=== PATIENT | male | born 1955 | race African-American/Black ===

== ENCOUNTER 2016-03-17 08:54 | Emergency (ER) | payer OTHER ==
[~2016-03-17] VITALS: Ht 180.3 cm; Wt 153.5 kg
[~2016-03-17 08:54] MED LIST: BUPR1TAB29 PO; CALC1TAB87 PO; CYCL1TAB29 PO; DULO1CAP3 PO; GLIP10TA6 PO; HYDR-3583 PO; LAMO200T PO; LOSA100T PO; METF1000 PO; NOVO7030P2 SQ
[2016-03-17 08:57] VITALS: BP 143/71; PULSE 99; RESP 24; TEMP 97.8; O2SAT 96
[2016-03-17] MEDS ORDERED: SODIUM CHLOR 0.9% 1000 ML INJ 1,000 ML IV SCH (11:55)
[2016-03-17 12:00] LABS: AUTOMATED NEUTROPHIL # 3.3 TH/MM3 (1.8-7.7); BASOPHIL % 0.3 % (0.0-2.0); EOSINOPHIL # 0.4 TH/MM3 (0-0.4); EOSINOPHIL % 5.7 % (0.0-4.0); HEMATOCRIT 39.5 % (39.0-51.0); LYMPH % 38.4 % (9.0-44.0); LYMPHOCYTE # 2.7 TH/MM3 (1.0-4.8); MEAN CELL VOLUME 73.3 FL (80.0-100.0); MEAN CORPUSCULAR HEMOGLOBIN 23.5 PG (27.0-34.0); MONO % 8.9 % (0.0-8.0); NEUT % 46.7 % (16.0-70.0); PLATELET COUNT 276 TH/MM3 (150-450); RED BLOOD COUNT 5.39 MIL/MM3 (4.50-5.90); RED CELL DISTRIBUTION WIDTH 15.2 % (11.6-17.2)
[2016-03-17 12:08] LABS: HEMO FLAGS AUTO DIFF
--- NOTE | 2016-03-17 12:13 | PD ---
HPI Chief Complaint: General Weakness Time Seen by Provider: 12:08 Travel History International Travel<30 days: No Contact w/Intl Traveler<30days: No Traveled to known affect area: No History of Present Illness HPI 60-year-old male that presents to the ED for evaluation of shortness of breath with exertion as well as cough and chest pain. Per patient she's had this since this Monday. Per patient he does have some chronic shortness of breath secondary to asthma and exertion secondary to his obesity and sleep apnea but per patient since Monday is been increasingly worsening causing him a lot of discomfort especially when he stands up or walks. Per patient he always uses a cane. Patient also has a history of diabetes, hypertension. States that the shortness of breath gets worse when he lies down as well. He also tells me that he feels like he is dehydrated secondary to having chronic diarrhea. Patient takes OTC meds with minimal relief of the diarrhea. He has allergies to lisinopril and morphine. He takes insulin for his diabetes. [facility] and his doctor sent him here because of the symptoms that he was describing. Per patient the chest pain gets worse at night and appears to be more positional. Mainly on the left side. 4 out of 10. Achy and pressure-like. Does not radiate anywhere else. Denies any recent travel. Cough is productive but minimal per patient. He does had some runny nose and congestion. Patient also complains of some right upper quadrant pain. PFSH Past Medical History Arthritis: Yes Asthma: Yes Anxiety: Yes Depression: Yes High Cholesterol: Yes Diabetes: Yes Diminished Hearing: No GERD: Yes Headaches: Yes Hypertension: Yes Psychiatric: Yes (PTSD) Pneumonia: Yes Sleep Apnea: Yes (CPAP) Past Surgical History Other Surgery: Yes (BACK SURGERY 1996) Social History Alcohol Use: No Tobacco Use: No Substance Use: No Allergies-Medications (Allergen,Severity, Reaction): Coded Allergies: Lisinopril (Verified Allergy, Severe, 03/17/16) ALLERGY Morphine (Verified Adverse Reaction, Severe, 03/17/16) DIARRHEA Reported Meds & Prescriptions Reported Meds & Active Scripts Active Reported Metformin (Metformin HCl) 1,000 Mg Tab 1,000 Mg PO BIDPC With meals Losartan (Losartan Potassium) 100 Mg Tab 100 Mg PO DAILY Lamotrigine 200 Mg Tab 200 Mg PO BID Novolin 70-30 Inj (Insulin Human Isoph/Insulin Regular) 1,000 Unit/10 Ml Vial 1 Units SQ Hydrocodone-Acetaminophen 10-325 mg Tab 1 Tab PO Q4H PRN Glipizide 10 Mg Tab 10 Mg PO BIDAC Take 30 minutes before a meal Duloxetine DR (Duloxetine HCl) 60 Mg Capdr 60 Mg PO DAILY Flexeril (Cyclobenzaprine HCl) 10 Mg Tab 10 Mg PO TID Calcium 600 with Vitamin D (Calcium Carbonate-Cholecalciferol) 600-400 mg-Unit Tab 1 Tab PO DAILY Bupropion HCl ER 12 HR (Bupropion HCl) 150 Mg Tab 150 Mg PO Q12HR Review of Systems Except as stated in HPI: all other systems reviewed are Neg Physical Exam Narrative GENERAL: SKIN: Warm and dry. HEAD: Atraumatic. Normocephalic. EYES: Pupils equal and round 4 mm reactive to light and accommodation. No scleral icterus. No injection or drainage. ENT: No nasal bleeding or discharge. Mucous membranes pink and moist. Tongue is midline. No uvula deviation. NECK: Trachea midline. No JVD. CARDIOVASCULAR: Regular rate and rhythm. No murmurs, S3, S4. RESPIRATORY: No accessory muscle use. Clear to auscultation. Breath sounds equal bilaterally. GASTROINTESTINAL: Abdomen soft, non-tender, nondistended. Hepatic and splenic margins not palpable. MUSCULOSKELETAL: Extremities without clubbing, cyanosis, or edema. No obvious deformities. patient has full range of motion of the upper and lower extremities bilaterally. 2+ pulses bilaterally. NEUROLOGICAL: Awake and alert. No obvious cranial nerve deficits. Motor grossly within normal limits. Five out of 5 muscle strength in the arms and legs. Normal speech. PSYCHIATRIC: Appropriate mood and affect; insight and judgment normal. Data Data Last Documented VS Vital Signs Date Time Temp Pulse Resp B/P Pulse Ox O2 Delivery O2 Flow Rate FiO2 03/17/16 08:57 97.8 99 24 143/71 96 Room Air Orders Electrocardiogram (03/17/16 09:06) Complete Blood Count With Diff (03/17/16 11:31) Basic Metabolic Panel (Bmp) (03/17/16 11:31) Ckmb (Isoenzyme) Profile (03/17/16 11:31) Troponin I (03/17/16 11:31) Prothrombin Time / Inr (Pt) (03/17/16 11:55) Act Partial Throm Time (Ptt) (03/17/16 11:55) Urinalysis - C+S If Indicated (03/17/16 11:55) Thyroid Stimulating Hormone (03/17/16 11:55) Chest, Single Ap (03/17/16 11:55) Ecg Monitoring (03/17/16 11:55) Oximetry (03/17/16 11:55) Hepatic Functional Panel (03/17/16 11:55) Lipase (03/17/16 11:55) B-Type Natriuretic Peptide (03/17/16 11:55) Influenzae A/B Antigen (03/17/16 11:55) Sodium Chlor 0.9% 1000 Ml Inj (Ns 1000 M (03/17/16 11:55) CKMB (03/17/16 11:37) CKMB% (03/17/16 11:37) D-Dimer (03/17/16 13:10) Labs Laboratory Tests Test 03/17/16 03/17/16 03/17/16 11:37 12:05 13:25 White Blood Count 7.0 TH/MM3 Red Blood Count 5.39 MIL/MM3 Hemoglobin 12.6 GM/DL Hematocrit 39.5 % Mean Corpuscular Volume 73.3 FL Mean Corpuscular Hemoglobin 23.5 PG Mean Corpuscular Hemoglobin 32.0 % Concent Red Cell Distribution Width 15.2 % Platelet Count 276 TH/MM3 Mean Platelet Volume 6.7 FL Neutrophils (%) (Auto) 46.7 % Lymphocytes (%) (Auto) 38.4 % Monocytes (%) (Auto) 8.9 % Eosinophils (%) (Auto) 5.7 % Basophils (%) (Auto) 0.3 % Neutrophils # (Auto) 3.3 TH/MM3 Lymphocytes # (Auto) 2.7 TH/MM3 Monocytes # (Auto) 0.6 TH/MM3 Eosinophils # (Auto) 0.4 TH/MM3 Basophils # (Auto) 0.0 TH/MM3 CBC Comment AUTO DIFF Differential Comment AUTO DIFF CONFIRMED Platelet Estimate NORMAL Platelet Morphology Comment NORMAL Red Cell Morphology Comment NORMAL Sodium Level 136 MEQ/L Potassium Level 4.7 MEQ/L Chloride Level 100 MEQ/L Carbon Dioxide Level 28.5 MEQ/L Anion Gap 8 MEQ/L Blood Urea Nitrogen 16 MG/DL Creatinine 1.10 MG/DL Estimat Glomerular Filtration 83 ML/MIN Rate Random Glucose 116 MG/DL Calcium Level 9.4 MG/DL Total Bilirubin 0.2 MG/DL Direct Bilirubin 0.1 MG/DL Indirect Bilirubin 0.1 MG/DL Aspartate Amino Transf 32 U/L (AST/SGOT) Alanine Aminotransferase 57 U/L (ALT/SGPT) Alkaline Phosphatase 55 U/L Total Creatine Kinase 294 U/L Creatine Kinase MB 2.9 NG/ML Troponin I 0.05 NG/ML Total Protein 8.0 GM/DL Albumin 4.0 GM/DL Lipase 139 U/L Thyroid Stimulating Hormone 1.640 uIU/ML 3rd Gen Prothrombin Time 10.4 SEC Prothromb Time International 0.9 RATIO Ratio Activated Partial 27.1 SEC Thromboplast Time D-Dimer Quantitative (PE/DVT) 0.20 MG/L FEU B-Type Natriuretic Peptide LESS THAN 2 PG/ML Urine Color YELLOW Urine Turbidity CLEAR Urine pH 5.5 Urine Specific [place] 1.031 Urine Protein TRACE mg/dL Urine Glucose (UA) NEG mg/dL Urine Ketones NEG mg/dL Urine Occult Blood NEG Urine Nitrite NEG Urine Bilirubin NEG Urine Urobilinogen LESS THAN 2.0 MG/DL Urine Leukocyte Esterase NEG Urine RBC 2 /hpf Urine WBC 1 /hpf Urine Hyaline Casts 8 /lpf Urine Mucus MANY /lpf Microscopic Urinalysis Comment CULT NOT INDICATED MDM Medical Decision Making Medical Screen Exam Complete: Yes Emergency Medical Condition: Yes Medical Record Reviewed: Yes Interpretation(s) CBC & BMP Diagram 03/17/16 11:37 troponin and CKMB negative TSH WNL Last Impressions Chest X-Ray 03/17/16 1155 Signed Impressions: Service Date/Time: March 11:57 - CONCLUSION: No acute disease. Rashad Stewart MD BNP WNL PT and PTT WNL ddimmer negative LFTs and lipase negative Differential Diagnosis Chest pain versus COPD versus asthma exacerbation versus pleural effusion versus influenza versus pneumonia versus cardiac chest pain versus ACS Narrative Course 60-year-old male that presents to the ED for evaluation of shortness of breath and chest pain. Patient was properly examined and was found to have signs and symptoms consistent what appears to be likely viral illness but cannot rule out any other disease. Especially ACS because of the chest pain. I recommend labs and imaging. Patient is agreeable with this. EKG was ordered as well. Labs and imaging showed no sign of acute disease. Patient slightly tachycardic, d- dimmer ordered to rule out PE, secondary to the chest pain and SOB. Labs and imaging were essentially unremarkable. D-dimer was negative. My attending Dr. Bravo about where the patient and recommends admission to the chest pain center. Patient at this time prefers not to be admitted. Per patient he did have a stress test recently in the past 2 years and he believes that was negative. He understands that this doesn't necessarily mean that there is no heart issues. Patient still would prefer to go home and follow with his doctor. Patient will have to sign out AMA. AMA: The risks of leaving against medical advice without further evaluation treatment were discussed with the patient. These risks include cardiac dysfunction, cardiac dysrhythmia, possible heart attack, possible stroke or . The patient indicated understanding of these risks and appeared to have the capacity to make this decision. Patient was told that if anything worsens she is to come back immediately. He agrees and understands. See ED worsening symptoms. Follow with PCP. Diagnosis Primary Impression: Chest pain Qualified Code: R07.9 - Chest pain, unspecified type Patient Instructions: General Instructions Additional Instructions: Tylenol for pain and fever. Cough drops for cough as needed. Drink plenty of fluids. Follow-up with PCP. See ED for worsening symptoms. Med/Other Pt SpecificInfo: Prescription(s) given Disposition: 01 DISCHARGE HOME Condition: Stable Bubba Milian Mar 17, 2016 12:13
[2016-03-17 12:18] LABS: ANION GAP 8 MEQ/L (5-15); BICARBONATE 28.5 MEQ/L (21.0-32.0); BLOOD UREA NITROGEN 16 MG/DL (7-18); CHLORIDE 100 MEQ/L (98-107); GLOMERULAR FILTRATION RATE 83 ML/MIN (>89); POTASSIUM 4.7 MEQ/L (3.5-5.1); SODIUM (NA) 136 MEQ/L (136-145)
[2016-03-17 12:23] LABS: CREATINE KINASE 294 U/L (39-308)
[2016-03-17 12:31] LABS: APTT (PATIENT) 27.1 SEC (24.3-30.1); INTERNATIONAL NORMALIZED RATIO 0.9 RATIO; PROTHROMBIN TIME - PATIENT 10.4 SEC (9.8-11.6)
[2016-03-17 12:35] LABS: CKMB 2.9 NG/ML (0.5-3.6)
[2016-03-17 12:43] LABS: PLATELET ESTIMATE SMEAR NORMAL (NORMAL); PLATELET MORPHOLOGY NORMAL (NORMAL); SCAN/DIFF AUTO DIFF CONFIRMED
--- NOTE | 2016-03-17 12:57 | RADRPT ---
EXAM DATE/TIME: 03/17/2016 11:57 [facility] COMPARISON: CHEST SINGLE AP, April 29, 2014, 11:41. INDICATIONS : Short of breath. MEDICAL HISTORY : None. SURGICAL HISTORY : None. ENCOUNTER: Initial ACUITY: 1 month PAIN SCORE: 8/10 LOCATION: Bilateral chest FINDINGS: A single view of the chest demonstrates the lungs to be symmetrically aerated without evidence of mas s, infiltrate or effusion. The cardiomediastinal contours are unremarkable. Osseous structures are intact. CONCLUSION: No acute disease. Rashad Stewart MD on March 17, 2016 at 12:55 Board Certified Radiologist. This report was verified electronically.
[2016-03-17 13:43] LABS: INDIRECT BILIRUBIN 0.1 MG/DL (0.0-0.8); TOTAL BILIRUBIN ADULT 0.2 MG/DL (0.2-1.0)
[2016-03-17 13:48] LABS: BLOOD, URINE NEG (NEG); COMMENT (UR) CULT NOT INDICATED; CULTURE IF INDICATED CULT NOT INDICATED; GLUCOSE,URINE NEG (NEG); HYALINE CAST, URINE 8 /lpf (RARE); KETONE, URINE NEG (NEG); MUCUS URINE MANY /lpf (OCC); NITRITE,URINE NEG (NEG); PH, URINE 5.5 (5.0-8.5); URINE COLOR YELLOW (YELLW/STRAW)
[2016-03-17] MEDS ORDERED: VENTAER INH (14:36)
[2016-03-17] MEDS ORDERED: NOVO7030P2 SQ (14:36)
[2016-03-17 15:00] VITALS: BP 138/72; PULSE 82; RESP 20; O2SAT 96
--- NOTE | 2016-03-17 19:38 | EKG ---
Date Performed: 03/17/2016 Time Performed: 09:16:06 PTAGE: 60 years EKG: Sinus rhythm WITH OCCASIONAL SUPRAVENTRICULAR PREMATURE COMPLEXES Compared to prior tracing no significant change BORDERLINE ECG PREVIOUS TRACING : 02/01/2016 09.37 DOCTOR: James Webber Interpretating Date/Time 03/17/2016 19:36:22
== END 2016-03-17 15:26 | disposition home or self-care (01) ==
LOC: NEPE 08:54
DX: R07.9 Chest pain, unspecified (principal); I47.1 Supraventricular tachycardia; R06.02 Shortness of breath; E11.9 Type 2 diabetes mellitus without complications; I10 Essential (primary) hypertension; E78.00 Pure hypercholesterolemia, unspecified
CPT/HCPCS: 71010; 80048; 80076; 81001; 82550; 82552; 83690; 83880; 84443; 84484; 85025; 85379; 85610; 85730; 87804; 93005; 96360; 99285; J7030

== ENCOUNTER 2016-03-18 05:47 | Observation (INO) | payer OTHER ==
[~2016-03-18] VITALS: Ht 180.3 cm; Wt 140.0 kg
[~2016-03-18 05:47] MED LIST changes: +VENTAER INH
[2016-03-18 05:52] VITALS: BP 159/82; PULSE 91; RESP 18; TEMP 98.1; O2SAT 99
[2016-03-18 06:10] VITALS: BP 139/101; PULSE 93; RESP 22; O2SAT 95
[2016-03-18] MEDS ORDERED: SODIUM CHLORIDE 0.9% FLUSH 5 ML FLUSH IVF PRN (06:15)
[2016-03-18] MEDS ORDERED: ASPIRIN 81 MG CHEW TAB PO ONE (06:15)
--- NOTE | 2016-03-18 06:48 | PD ---
HPI Chief Complaint: Chest Pain Time Seen by Provider: 06:04 Travel History International Travel<30 days: No Contact w/Intl Traveler<30days: No Traveled to known affect area: No History of Present Illness HPI Patient is a 60-year-old male with history of diabetes who comes in complaining of chest pain. He was here yesterday for the same thing and advised to stay for admission, however he signed out AMA. He says he is sleeping tonight when the pain came back on and went through to his back. He says the pain was worse today, so he came back in. He says he feels short of breath on exertion, but he thinks this is due to his asthma. He denies nausea or vomiting. He denies coughing or fevers. PFSH Past Medical History Arthritis: Yes Asthma: Yes Anxiety: Yes Depression: Yes High Cholesterol: Yes Diabetes: Yes Patient Takes Glucophage: Yes (metformin 03/17/16) Diminished Hearing: No GERD: Yes Headaches: Yes Hypertension: Yes Psychiatric: Yes (PTSD) Pneumonia: Yes Sleep Apnea: Yes (DOES NOT USE CPAP) Influenza Vaccination: No Past Surgical History Other Surgery: Yes (BACK SURGERY 1996) Social History Alcohol Use: No Tobacco Use: No Substance Use: No Allergies-Medications (Allergen,Severity, Reaction): Coded Allergies: Lisinopril (Verified Allergy, Severe, 03/18/16) ALLERGY Morphine (Verified Adverse Reaction, Severe, 03/18/16) DIARRHEA Reported Meds & Prescriptions Reported Meds & Active Scripts Active Reported Novolin 70-30 Inj (Insulin Human Isoph/Insulin Regular) 1,000 Unit/10 Ml Vial 20 Units SQ DAILY IN THE PM Ventolin Hfa 18 GM Inh (Albuterol Sulfate) 90 Mcg/Act Aer 2 Puff INH QID PRN Metformin (Metformin HCl) 1,000 Mg Tab 1,000 Mg PO BIDPC With meals Losartan (Losartan Potassium) 100 Mg Tab 50 Mg PO DAILY Lamotrigine 200 Mg Tab 100 Mg PO DAILY Novolin 70-30 Inj (Insulin Human Isoph/Insulin Regular) 1,000 Unit/10 Ml Vial 15 Units SQ DAILY IN THE AM Hydrocodone-Acetaminophen 10-325 mg Tab 1 Tab PO TID PRN Glipizide 10 Mg Tab 20 Mg PO BIDAC Take 30 minutes before a meal Duloxetine DR (Duloxetine HCl) 60 Mg Capdr 60 Mg PO BID Flexeril (Cyclobenzaprine HCl) 10 Mg Tab 10 Mg PO Q8HR PRN Calcium 600 with Vitamin D (Calcium Carbonate-Cholecalciferol) 600-400 mg-Unit Tab 1 Tab PO BID Bupropion HCl ER 12 HR (Bupropion HCl) 150 Mg Tab 150 Mg PO DAILY Review of Systems Except as stated in HPI: all other systems reviewed are Neg General / Constitutional: No: Fever, Chills HENT: No: Headaches, Lightheadedness Cardiovascular: Positive: Chest Pain or Discomfort Respiratory: Positive: Shortness of Breath, No: Cough Gastrointestinal: No: Nausea, Vomiting, Abdominal Pain Musculoskeletal: No: Myalgias, Edema Skin: No Rash, No Change in Pigmentation Neurologic: No: Weakness, Dizziness Physical Exam Narrative GENERAL: Awake and alert, obese. SKIN: Warm and dry. HEAD: Atraumatic. Normocephalic. EYES: Pupils equal and round. No scleral icterus. ENT: Mucous membranes pink and moist. NECK: Trachea midline. No JVD. CARDIOVASCULAR: Regular rate and rhythm. No murmur appreciated. RESPIRATORY: No accessory muscle use. Clear to auscultation. Breath sounds equal bilaterally. GASTROINTESTINAL: Abdomen soft, non-tender, nondistended. Hepatic and splenic margins not palpable. MUSCULOSKELETAL: No obvious deformities. No clubbing. No cyanosis. No edema. NEUROLOGICAL: Awake and alert. No obvious cranial nerve deficits. Motor grossly within normal limits. Normal speech. PSYCHIATRIC: Appropriate mood and affect; insight and judgment normal. Data Data Last Documented VS Vital Signs Date Time Temp Pulse Resp B/P Pulse Ox O2 Delivery O2 Flow Rate FiO2 03/18/16 06:10 93 22 139/101 95 Room Air 03/18/16 05:52 98.1 Orders Electrocardiogram (03/18/16 06:14) Complete Blood Count With Diff (03/18/16 06:14) Comprehensive Metabolic Panel (03/18/16 06:14) Magnesium (Mg) (03/18/16 06:14) Prothrombin Time / Inr (Pt) (03/18/16 06:14) Act Partial Throm Time (Ptt) (03/18/16 06:14) Troponin I (03/18/16 06:14) Lipase (03/18/16 06:14) Chest, Single Ap (03/18/16 06:14) Ecg Monitoring (03/18/16 06:14) Bilateral Bp Monitoring (03/18/16 06:14) Iv Access Insert/Monitor (03/18/16 06:14) Oximetry (03/18/16 06:14) Oxygen Administration (03/18/16 06:14) Aspirin Chew (Aspirin Chew) (03/18/16 06:15) Sodium Chloride 0.9% Flush (Ns Flush) (03/18/16 06:15) Admit Order (Ed Use Only) (03/18/16 ) Labs Laboratory Tests Test 03/18/16 06:19 White Blood Count 6.6 TH/MM3 Red Blood Count 5.25 MIL/MM3 Hemoglobin 12.0 GM/DL Hematocrit 38.5 % Mean Corpuscular Volume 73.3 FL Mean Corpuscular Hemoglobin 22.8 PG Mean Corpuscular Hemoglobin 31.1 % Concent Red Cell Distribution Width 15.3 % Platelet Count 272 TH/MM3 Mean Platelet Volume 7.0 FL Neutrophils (%) (Auto) 45.1 % Lymphocytes (%) (Auto) 39.9 % Monocytes (%) (Auto) 8.0 % Eosinophils (%) (Auto) 6.6 % Basophils (%) (Auto) 0.4 % Neutrophils # (Auto) 3.0 TH/MM3 Lymphocytes # (Auto) 2.6 TH/MM3 Monocytes # (Auto) 0.5 TH/MM3 Eosinophils # (Auto) 0.4 TH/MM3 Basophils # (Auto) 0.0 TH/MM3 CBC Comment AUTO DIFF Prothrombin Time 10.5 SEC Prothromb Time International 1.0 RATIO Ratio Activated Partial 27.2 SEC Thromboplast Time Sodium Level 139 MEQ/L Potassium Level 4.7 MEQ/L Chloride Level 103 MEQ/L Carbon Dioxide Level 27.8 MEQ/L Anion Gap 8 MEQ/L Blood Urea Nitrogen 15 MG/DL Creatinine 1.04 MG/DL Estimat Glomerular Filtration 89 ML/MIN Rate Random Glucose 123 MG/DL Calcium Level 9.2 MG/DL Magnesium Level 1.9 MG/DL Total Bilirubin 0.2 MG/DL Aspartate Amino Transf 28 U/L (AST/SGOT) Alanine Aminotransferase 53 U/L (ALT/SGPT) Alkaline Phosphatase 52 U/L Troponin I 0.05 NG/ML Total Protein 7.6 GM/DL Albumin 3.7 GM/DL Lipase 141 U/L MDM Medical Decision Making Medical Screen Exam Complete: Yes Emergency Medical Condition: Yes Medical Record Reviewed: Yes Interpretation(s) ECG shows a regular rhythm no clear P waves seen. This is changed from his ECG that was done yesterday that showed normal sinus rhythm. Differential Diagnosis ACS versus NSTEMI versus STEMI Narrative Course Patient is a 60-year-old male comes in complaining of chest pain. Exam shows no acute abnormalities. IV established, labs sent. Patient given aspirin. Labs show troponin 0.05. Which is the same as it was yesterday. Patient placed in chest pain center for further management. Diagnosis Primary Impression: Chest pain Qualified Code: R07.9 - Chest pain, unspecified type Admitting Information Admitting Physician Requests: January Yates MD Mar 18, 2016 06:47
--- NOTE | 2016-03-18 06:53 | RADRPT ---
EXAM DATE/TIME: 03/18/2016 06:44 [facility] COMPARISON: CHEST SINGLE AP, March 17, 2016, 11:57. INDICATIONS : Patient complains of chest pain that sometimes radiates to upper back. MEDICAL HISTORY : Asthma. SURGICAL HISTORY : None. ENCOUNTER: Initial ACUITY: 1 month PAIN SCORE: 9/10 LOCATION: chest FINDINGS: A single view of the chest demonstrates the lungs to be symmetrically aerated without evidence of mas s, infiltrate or effusion. The cardiomediastinal contours are unremarkable. Osseous structures are intact. CONCLUSION: 1. No acute cardiopulmonary disease. Valentino Luque MD on March 18, 2016 at 6:51 Board Certified Radiologist. This report was verified electronically.
[2016-03-18 06:59] LABS: APTT (PATIENT) 27.2 SEC (24.3-30.1); PROTHROMBIN TIME - PATIENT 10.5 SEC (9.8-11.6)
[2016-03-18 07:00] LABS: BASOPHIL % 0.4 % (0.0-2.0); EOSINOPHIL # 0.4 TH/MM3 (0-0.4); EOSINOPHIL % 6.6 % (0.0-4.0); HEMATOCRIT 38.5 % (39.0-51.0); LYMPH % 39.9 % (9.0-44.0); LYMPHOCYTE # 2.6 TH/MM3 (1.0-4.8); MEAN CELL VOLUME 73.3 FL (80.0-100.0); MEAN CORPUSCULAR HEMOGLOBIN 22.8 PG (27.0-34.0); MEAN CORPUSCULAR HGB CONC 31.1 % (32.0-36.0); NEUT % 45.1 % (16.0-70.0); PLATELET COUNT 272 TH/MM3 (150-450); RED BLOOD COUNT 5.25 MIL/MM3 (4.50-5.90); RED CELL DISTRIBUTION WIDTH 15.3 % (11.6-17.2); WHITE BLOOD COUNT 6.6 TH/MM3 (4.0-11.0)
[2016-03-18 07:02] LABS: HEMO FLAGS AUTO DIFF
[2016-03-18 07:08] LABS: ANION GAP 8 MEQ/L (5-15); AST (GOT) 28 U/L (15-37); BICARBONATE 27.8 MEQ/L (21.0-32.0); BLOOD UREA NITROGEN 15 MG/DL (7-18); CHLORIDE 103 MEQ/L (98-107); GLOMERULAR FILTRATION RATE 89 ML/MIN (>89); MAGNESIUM 1.9 MG/DL (1.5-2.5); POTASSIUM 4.7 MEQ/L (3.5-5.1); SODIUM (NA) 139 MEQ/L (136-145)
[2016-03-18 07:12] LABS: ALKALINE PHOSPHATASE 52 U/L (45-117); ALT (GPT) 53 U/L (12-78); TOTAL BILIRUBIN ADULT 0.2 MG/DL (0.2-1.0)
[2016-03-18 07:50] LABS: PLATELET ESTIMATE SMEAR NORMAL (NORMAL); PLATELET MORPHOLOGY NORMAL (NORMAL); SCAN/DIFF AUTO DIFF CONFIRMED; TEARDROP RBCS 1+ (NORMAL)
[2016-03-18 09:30] VITALS: BP 146/67; PULSE 83; RESP 18; O2SAT 100
[2016-03-18 10:59] VITALS: BP 149/71; PULSE 86; RESP 18; TEMP 98.2; O2SAT 100
[2016-03-18] MEDS ORDERED: NITROGLYCERIN 0.4 MG SL 25 TABS/BTL SL PRN (11:00)
[2016-03-18] MEDS ORDERED: ONDANSETRON HCL 4 MG/2 ML VIAL IV PRN (11:00)
[2016-03-18] MEDS ORDERED: ACETAMINOPHEN 500 MG CPLT PO PRN (11:00)
[2016-03-18 11:43] VITALS: PULSE 82
--- NOTE | 2016-03-18 15:16 | HHI.DCPOC ---
Discharge Care Plan Diagnosis: (1) Musculoskeletal chest pain Goals to Promote Your Health * To prevent worsening of your condition and complications * To maintain your health at the optimal level Directions to Meet Your Goals Take your medications as prescribed Follow your dietary instruction Follow activity as directed Keep your appointments as scheduled Take your immunizations and boosters as scheduled If your symptoms worsen call your PCP, if no PCP go to Urgent Care Center or Emergency Room Smoking is Dangerous to Your Health. Avoid second hand smoke Call the 24-hour hour crisis hotline for domestic abuse at Naomi Ramos Mar 18, 2016 15:16
--- NOTE | 2016-03-18 20:12 | MH ---
cc: RODRI LING MD DATE OF ADMISSION 03/18/2016 1956 CHIEF COMPLAINT Chest pain HISTORY OF PRESENT ILLNESS This is a 60-year-old patient who presents to the emergency room for further evaluation of a week long chest discomfort. Onset is each evening. Location is in his substernal area described as a sharp stabbing pain that radiates to his back. This pain usually lasts until he falls back asleep, approximately 15-20 minutes, with no associated symptoms. Precipitating factors is movement or lack thereof. Relieving factors - States it gradually improves as he starts to move position or get ready throughout the day. He also has a complaint of fatigue over the past week and his chronic right hip and back pain also seems to be worse. PAST MEDICAL HISTORY 1. Diabetes, 2. Depression 3. PTSD, 4. Chronic hip and back pain, 5. Hypertension, 6. Asthma. PAST SURGICAL HISTORY Back surgery. SOCIAL HISTORY He is disabled. His primary care provider is Dr. Rosalio Allen at the [facility]. He quit smoking December of 2003. Prior to that, he smoked one-pack of cigarettes in 3 days. He denies any alcohol or illegal drug use. Does have known hypertension, diabetes. No known hyperlipidemia. He states he is pretty sedentary. PAST CARDIAC HISTORY Had a chemical stress test here at [place] 04/30/2014 which was negative for any ischemia. 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 MEDICATIONS Current include 1. Hydrocortone 1 tablet t.i.d. p.r.n. for pain 2. Losartan 50 mg daily. 3. Cymbalta 60 mg b.i.d. 4. Ventolin p.r.n. 5. Metformin 1000 mg t.i.d. 6. Flexeril 10 mg q.h.s. 7. Novolin 70/30/20 units q.p.m. 8. Calcium/vitamin D tablet twice a day 9. Glipizide 20 mg b.i.d. 10. Lamotrigine 100 mg daily. REVIEW OF SYSTEMS Reports week long of fatigue. No recent illness, fevers, chills, change in appetite. HEENT: No headache or vision changes, dysphagia. CARDIOVASCULAR: As stated above. No chest pain throughout the day or on exertion. States chest discomfort happens once he has falling asleep and then he has to move his position for the chest discomfort to be relieved. There is no intermittent leg pain or dizziness. RESPIRATORY: Has had some shortness of breath, although he relates this to his obesity and it is unchanged. No cough, wheeze, hemoptysis. He uses his albuterol inhaler infrequently. ABDOMEN: Chronic diarrhea, no pain, distension, blood in stool or dark stool. Reports a good appetite. No increase or decrease of weight unintentionally. : No dysuria. EXTREMITIES: No lower leg edema or pain. MUSCULOSKELETAL: No change in range of motion. Reports chronic back and hip pain. In fact, his right hip pain he states seems to be getting worse although his Hydrocodone and Flexeril do help with this discomfort although it never goes completely away. NEUROLOGIC: No difficulty balance, motor or sensory deficits, loss of consciousness, vertigo, change in memory. PSYCHIATRIC: No anxiety. States his he is working with his psychiatrist to decrease some of his medications including his Wellbutrin. He quit taking his Wellbutrin with the assistance of a psychiatrist with his last dose yesterday and he feels this could have be contributing to his fatigue. PHYSICAL EXAMINATION VITAL SIGNS: Temperature 98.2, pulse 86, respiratory 18, blood pressure 149/71. he is 100% on room air. GENERAL: He is alert, morbidly obese. No acute distress pleasant -[place]oven[place] male HEAD: Normocephalic, atraumatic. EYES: Sclerae clear. Conjunctivae without injection. Pupils are equal and round. NECK: Supple. Trachea is midline. CARDIOVASCULAR: He has a regular rate and rhythm without murmur, rub or gallop. No JVD. S1-S2. No S3. No S4. No carotid bruits. RESPIRATORY: Clear lungs throughout bilateral with no crackles, wheeze or rhonchi. He has diminish ____ in his bilateral bases. Nonlabored symmetrical chest rise. ABDOMEN: Soft, obese, nontender, nondistended. No masses. Positive bowel tones. EXTREMITIES: Pulses +1 x4. He does have a +1 dependent edema. MUSCULOSKELETAL: Normal tone x4. Nontender. No obvious deformities. NEUROLOGIC: Cranial nerves II-XII grossly intact. Motor strength 5/5 PSYCHIATRIC: Alert and oriented x3 with a pleasant affect appropriate to mood, insight and judgment. SKIN: Normal turgor, normal texture. Skin is warm and dry. LABORATORY CBC has a hemoglobin of 12 and a hematocrit of 38.5, MCV of 73.3, MCH of 22.8 otherwise unremarkable. Chemistry is unremarkable. Three troponins - first troponin is a 0.05, second is 0.05 and third is 0.03. He actually was seen in the emergency room 03/17. At that time, it was recommended for him to follow up at the chest pain center. He did not do that at that time, however, his troponin at that time was also 0.05. Coagulation is unremarkable. IMAGING STUDIES Chest x-ray read by the radiologist as impression of no acute cardiopulmonary disease. CARDIOLOGY STUDIES Three EKGs show normal sinus rhythm with no ST or T segment changes. ASSESSMENT/PLAN 1. Chest pain. The patient was admitted to the chest pain center. He underwent three sets of EKGs and cardiac enzymes and was monitored throughout the evening. He was seen and evaluated by Dr. Rodri Ling. His chest pain is very atypical as he happens each evening and improves with repositioning. This has been discussed with the patient and he could be discharged this afternoon and he is agreeable to this plan of care and will follow up with his primary care provider. 2. PTSD. Have encouraged him to continue to work with his psychiatrist regarding changes in his medications and his fatigue. Could most likely be related to the changes of his medications and to discuss this with his psychiatrist. All his other medications have been reordered while appropriate in the chest pain center and he has been encouraged to follow back to the emergency room as needed for any further chest discomfort. The patient is agreeable to this plan of care and verbalizes understanding. Dictated by RAPHAEL Martins MD YOUNG Gaytan/ /6:28 PM /8:48 AM
[2016-03-18] MEDS ORDERED: SODIUM CHLORIDE 0.9% FLUSH 5 ML FLUSH IVF SCH (21:00)
[2016-03-19] MEDS ORDERED: ASPIRIN 325 MG TAB PO SCH (09:00)
--- NOTE | 2016-03-19 21:42 | EKG ---
Date Performed: 03/18/2016 Time Performed: 06:35:15 PTAGE: 60 years EKG: Sinus rhythm WITH FREQUENT PACs ABNORMAL RHYTHM ECG PREVIOUS TRACING : 03/17/2016 09.16 DOCTOR: Alvin Haskins Interpretating Date/Time 03/19/2016 21:41:41
--- NOTE | 2016-03-19 22:36 | EKG ---
Date Performed: 03/18/2016 Time Performed: 09:05:05 PTAGE: 60 years EKG: Sinus rhythm WITH OCCASIONAL SUPRAVENTRICULAR PREMATURE COMPLEXES BORDERLINE ECG PREVIOUS TRACING : 03/18/2016 06.35 DOCTOR: Alvin Haskins Interpretating Date/Time 03/19/2016 22:35:08
--- NOTE | 2016-03-19 23:03 | EKG ---
Date Performed: 03/18/2016 Time Performed: 12:37:00 PTAGE: 60 years EKG: Sinus rhythm WITH OCCASIONAL SUPRAVENTRICULAR PREMATURE COMPLEXES BORDERLINE ECG PREVIOUS TRACING : 03/18/2016 09.05 DOCTOR: Alvin Haskins Interpretating Date/Time 03/19/2016 23:01:48
== END 2016-03-18 16:16 | disposition home or self-care (01) ==
LOC: NEPC 05:47 → NEDA 07:19 → NEPFCDU 10:56
PROVIDERS: ADMIT Internal Medicine Cardiovascular Disease; ATTEND Internal Medicine Cardiovascular Disease
DX: R07.9 Chest pain, unspecified (principal); I10 Essential (primary) hypertension; R94.31 Abnormal electrocardiogram [ECG] [EKG]; E11.9 Type 2 diabetes mellitus without complications; F43.10 Post-traumatic stress disorder, unspecified; E78.00 Pure hypercholesterolemia, unspecified; G47.30 Sleep apnea, unspecified; J45.909 Unspecified asthma, uncomplicated; K21.9 Gastro-esophageal reflux disease without esophagitis; M19.90 Unspecified osteoarthritis, unspecified site; Z87.891 Personal history of nicotine dependence
CPT/HCPCS: 71010; 80053; 82948; 83690; 83735; 84484; 85025; 85610; 85730; 93005; 99285; G0378

== ENCOUNTER 2016-03-31 15:44 | Emergency (ER) | payer OTHER ==
[~2016-03-31] VITALS: Ht 180.3 cm; Wt 140.0 kg
[~2016-03-31 15:44] MED LIST changes: -BUPR1TAB29 PO
[2016-03-31 15:46] VITALS: BP 139/67; PULSE 105; RESP 14; TEMP 98.1; O2SAT 98
--- NOTE | 2016-03-31 18:24 | PD ---
HPI . Cough Chief Complaint: Respiratory Symptoms Time Seen by Provider: 18:00 Travel History International Travel<30 days: No Contact w/Intl Traveler<30days: No Traveled to known affect area: No History of Present Illness HPI Patient presents with a chronic cough. This been going on for at least a month. Symptoms are exacerbated isolated down. He is also complaining with fatigue, headache, shortness of breath and chest pain. Patient reports that his chest pain is exacerbated by movement and by coughing. Patient reports that he was seen here twice for same go and that no etiology for his symptoms was found. He reports that he had a negative stress test. Patient further reports that there is a lot of mold in his apartment. He reports a history of asthma and uses Inderal as needed. He states that the albuterol helps his breathing but does not help his chest pain. He states that he is not on any other medications for his asthma such as inhaled or oral steroids. PFSH Past Medical History Arthritis: Yes Asthma: Yes Anxiety: Yes Depression: Yes Cardiovascular Problems: No High Cholesterol: Yes Diabetes: Yes Patient Takes Glucophage: Yes Diminished Hearing: No GERD: Yes Headaches: Yes Hypertension: Yes Psychiatric: Yes (PTSD) Pneumonia: Yes Sleep Apnea: Yes (DOES NOT USE CPAP) Past Surgical History Other Surgery: Yes (BACK SURGERY 1996) Social History Alcohol Use: Yes (rare) Tobacco Use: No Substance Use: No Allergies-Medications (Allergen,Severity, Reaction): Coded Allergies: Lisinopril (Verified Allergy, Severe, 03/31/16) ALLERGY Morphine (Verified Adverse Reaction, Severe, 03/31/16) DIARRHEA Reported Meds & Prescriptions Reported Meds & Active Scripts Active Reported Novolin 70-30 Inj (Insulin Human Isoph/Insulin Regular) 1,000 Unit/10 Ml Vial 20 Units SQ DAILY IN THE PM Ventolin Hfa 18 GM Inh (Albuterol Sulfate) 90 Mcg/Act Aer 2 Puff INH QID PRN Metformin (Metformin HCl) 1,000 Mg Tab 1,000 Mg PO BIDPC With meals Losartan (Losartan Potassium) 100 Mg Tab 50 Mg PO DAILY Lamotrigine 200 Mg Tab 100 Mg PO DAILY Novolin 70-30 Inj (Insulin Human Isoph/Insulin Regular) 1,000 Unit/10 Ml Vial 15 Units SQ DAILY IN THE AM Hydrocodone-Acetaminophen 10-325 mg Tab 1 Tab PO TID PRN Glipizide 10 Mg Tab 20 Mg PO BIDAC Take 30 minutes before a meal Duloxetine DR (Duloxetine HCl) 60 Mg Capdr 60 Mg PO BID Flexeril (Cyclobenzaprine HCl) 10 Mg Tab 10 Mg PO Q8HR PRN Calcium 600 with Vitamin D (Calcium Carbonate-Cholecalciferol) 600-400 mg-Unit Tab 1 Tab PO BID Review of Systems Except as stated in HPI: all other systems reviewed are Neg General / Constitutional: Positive: Other (fatigue), No: Fever, Chills HENT: Positive: Headaches Cardiovascular: Positive: Chest Pain or Discomfort Respiratory: Positive: Cough, Shortness of Breath Physical Exam Narrative GENERAL: Awake and alert and in no acute distress. SKIN: Warm and dry. HEAD: Atraumatic. Normocephalic. EYES: Pupils equal and round. ENT: No nasal bleeding or discharge. Mucous membranes pink and moist. NECK: Trachea midline. Neck is supple. CARDIOVASCULAR: Regular rate and rhythm. Heart sounds are normal. RESPIRATORY: No accessory muscle use. He is able to speak in complete sentences without dyspnea. He does have some expiratory wheezing which is heard with coughing. GASTROINTESTINAL: Abdomen soft, non-tender, nondistended. MUSCULOSKELETAL: No obvious deformities. No edema. NEUROLOGICAL: Awake and alert. No obvious cranial nerve deficits. Motor grossly within normal limits. Normal speech. PSYCHIATRIC: Appropriate mood and affect; insight and judgment normal. Data Data Last Documented VS Vital Signs Date Time Temp Pulse Resp B/P Pulse Ox O2 Delivery O2 Flow Rate FiO2 03/31/16 19:42 99 Nasal Cannula 2 03/31/16 19:41 18 03/31/16 19:40 104 135/61 03/31/16 15:46 98.1 Orders Complete Blood Count With Diff (03/31/16 18:17) Basic Metabolic Panel (Bmp) (03/31/16 18:17) B-Type Natriuretic Peptide (03/31/16 18:17) D-Dimer (03/31/16 18:17) Ckmb (Isoenzyme) Profile (03/31/16 18:17) Troponin I (03/31/16 18:17) Iv Access Insert/Monitor (03/31/16 18:17) Electrocardiogram (03/31/16 18:17) Ecg Monitoring (03/31/16 18:17) Oximetry (03/31/16 18:17) Oxygen Administration (03/31/16 18:17) Chest, Single Ap (03/31/16 18:17) Sodium Chloride 0.9% Flush (Ns Flush) (03/31/16 18:30) Methylprednisolone So Succ Inj (Solumedr (03/31/16 18:30) Albuterol-Ipratropium Neb (Duoneb Neb) (03/31/16 18:30) CKMB (03/31/16 18:30) CKMB% (03/31/16 18:30) Albuterol-Ipratropium Neb (Duoneb Neb) (03/31/16 19:45) Labs Laboratory Tests Test 03/31/16 18:30 White Blood Count 8.2 TH/MM3 Red Blood Count 5.18 MIL/MM3 Hemoglobin 12.0 GM/DL Hematocrit 38.3 % Mean Corpuscular Volume 73.9 FL Mean Corpuscular Hemoglobin 23.1 PG Mean Corpuscular Hemoglobin 31.3 % Concent Red Cell Distribution Width 15.3 % Platelet Count 287 TH/MM3 Mean Platelet Volume 6.6 FL Neutrophils (%) (Auto) 54.1 % Lymphocytes (%) (Auto) 31.2 % Monocytes (%) (Auto) 9.7 % Eosinophils (%) (Auto) 4.6 % Basophils (%) (Auto) 0.4 % Neutrophils # (Auto) 4.4 TH/MM3 Lymphocytes # (Auto) 2.6 TH/MM3 Monocytes # (Auto) 0.8 TH/MM3 Eosinophils # (Auto) 0.4 TH/MM3 Basophils # (Auto) 0.0 TH/MM3 CBC Comment AUTO DIFF Differential Comment AUTO DIFF CONFIRMED D-Dimer Quantitative (PE/DVT) 0.22 MG/L FEU Sodium Level 138 MEQ/L Potassium Level 4.8 MEQ/L Chloride Level 105 MEQ/L Carbon Dioxide Level 26.4 MEQ/L Anion Gap 7 MEQ/L Blood Urea Nitrogen 18 MG/DL Creatinine 1.18 MG/DL Estimat Glomerular Filtration 77 ML/MIN Rate Random Glucose 100 MG/DL Calcium Level 8.8 MG/DL Total Creatine Kinase 633 U/L Creatine Kinase MB 4.5 NG/ML Creatine Kinase MB % 0.7 % Troponin I 0.04 NG/ML MDM Medical Decision Making Medical Screen Exam Complete: Yes Emergency Medical Condition: Yes Medical Record Reviewed: Yes (patient was seen here a couple weeks ago and admitted to the chest pain center and he had negative cardiac enzymes, a normal BMP, normal d-dimer and a negative chest x-ray.) Interpretation(s) EKG shows a sinus rhythm with no acute ischemic changes. EKG is unchanged from previous. Differential Diagnosis Differential diagnosis of dyspnea includes but is not limited to congestive heart failure, pneumonia, wheezing, pneumothorax, pulmonary embolism Narrative Course Patient presents for evaluation and treatment of a chronic cough. Patient has artery been evaluated here for chest pain or shortness of breath twice in the past couple weeks. The etiology of his symptoms has not yet been determined. I suspect that asthma is the etiology of his symptoms. He probably has chest wall pain from coughing and is coughing because he is wheezing. Chest x-ray is negative to the radiologist's interpretation. Chest x-ray was independently viewed by me. CBC has an H&H of 12.0 38.3. White blood count is 8.2. D-dimer 0.22. Diagnosis Primary Impression: Dyspnea Qualified Code: R06.00 - Dyspnea, unspecified type Additional Impressions: Chest pain Qualified Code: R07.9 - Chest pain, unspecified type Asthma Qualified Code: J45.20 - Mild intermittent asthma without complication Chest wall pain Patient Instructions: Asthma (ED), Chest Wall Pain (ED), General Instructions Med/Other Pt SpecificInfo: Prescription(s) given Scripts Hydrocodone-Chlorpheniramine 12 HR Liq (Tussionex Pennkinetic Ext 12 HR Liq)10- 8 Mg/5 Ml Susp5 Ml PO Q12H PRN (cough) #60 ML Ref 0 Prov:Aida Acuña MD 03/31/16 Prednisone (48) 10 mg tab Dose Pack 10 Mg Dspk10 Mg PO DIRECTED #1 DSPK Ref 0 Prov:Aida Acuña MD 03/31/16 Disposition: 01 DISCHARGE HOME Condition: Stable Aida Acuña MD Mar 31, 2016 18:24
[2016-03-31] MEDS: RESP: ALBUTEROL 2.5 MG/IPRATROPIUM 0.5 MG NEB (SCH) INH ×2 (18:25→20:03)
[2016-03-31] MEDS ORDERED: SODIUM CHLORIDE 0.9% FLUSH 5 ML FLUSH IVF PRN (18:30)
[2016-03-31] MEDS ORDERED: methylPREDNISolone SOD SUCC 125 MG/2 ML VIAL IVP ONE (18:30)
[2016-03-31 18:38] LABS: AUTOMATED NEUTROPHIL # 4.4 TH/MM3 (1.8-7.7); BASOPHIL % 0.4 % (0.0-2.0); EOSINOPHIL # 0.4 TH/MM3 (0-0.4); EOSINOPHIL % 4.6 % (0.0-4.0); HEMATOCRIT 38.3 % (39.0-51.0); LYMPH % 31.2 % (9.0-44.0); LYMPHOCYTE # 2.6 TH/MM3 (1.0-4.8); MEAN CELL VOLUME 73.9 FL (80.0-100.0); MEAN CORPUSCULAR HEMOGLOBIN 23.1 PG (27.0-34.0); MEAN CORPUSCULAR HGB CONC 31.3 % (32.0-36.0); MONO % 9.7 % (0.0-8.0); NEUT % 54.1 % (16.0-70.0); PLATELET COUNT 287 TH/MM3 (150-450); RED BLOOD COUNT 5.18 MIL/MM3 (4.50-5.90); RED CELL DISTRIBUTION WIDTH 15.3 % (11.6-17.2); WHITE BLOOD COUNT 8.2 TH/MM3 (4.0-11.0)
[2016-03-31 18:54] LABS: HEMO FLAGS AUTO DIFF
--- NOTE | 2016-03-31 18:56 | RADRPT ---
EXAM DATE/TIME: 03/31/2016 18:35 [facility] COMPARISON: CHEST SINGLE AP, March 18, 2016, 6:44. INDICATIONS : Short of breath. MEDICAL HISTORY : Ex smoker. SURGICAL HISTORY : None. ENCOUNTER: Initial ACUITY: >1 year PAIN SCORE: 0/10 LOCATION: Bilateral chest FINDINGS: A single view of the chest demonstrates the lungs to be symmetrically aerated without evidence of mas s, infiltrate or effusion. The cardiomediastinal contours are unremarkable. Osseous structures are intact. CONCLUSION: No acute disease. Antony Arnold MD on March 31, 2016 at 18:55 Board Certified Radiologist. This report was verified electronically.
[2016-03-31 19:18] LABS: SCAN/DIFF AUTO DIFF CONFIRMED
[2016-03-31 19:22] LABS: BICARBONATE 26.4 MEQ/L (21.0-32.0)
[2016-03-31 19:23] LABS: POTASSIUM 4.8 MEQ/L (3.5-5.1)
[2016-03-31 19:35] LABS: CKMB 4.5 NG/ML (0.5-3.6)
[2016-03-31 19:40] VITALS: BP 135/61; PULSE 104; RESP 18; O2SAT 92
[2016-03-31 19:41] VITALS: RESP 18; O2SAT 92
[2016-03-31 19:42] VITALS: O2SAT 99
[2016-03-31] MEDS ORDERED: PRED10PA2 PO (20:03)
[2016-03-31] MEDS ORDERED: TUSSSUS2 PO (20:03)
--- NOTE | 2016-04-01 16:31 | EKG ---
Date Performed: 03/31/2016 Time Performed: 18:53:34 PTAGE: 60 years EKG: SINUS TACHYCARDIA ABNORMAL RHYTHM ECG NO PREVIOUS TRACING DOCTOR: Billy Beauchamp Interpretating Date/Time 04/01/2016 16:29:33
== END 2016-03-31 22:01 | disposition home or self-care (01) ==
LOC: NEPA 15:44
DX: R06.00 Dyspnea, unspecified (principal); R07.89 Other chest pain; J45.20 Mild intermittent asthma, uncomplicated; R51 Headache; R94.31 Abnormal electrocardiogram [ECG] [EKG]; E11.9 Type 2 diabetes mellitus without complications; I10 Essential (primary) hypertension; E78.00 Pure hypercholesterolemia, unspecified; G47.30 Sleep apnea, unspecified; Z79.84 Long term (current) use of oral hypoglycemic drugs; Z87.09 Personal history of other diseases of the respiratory system; Z87.39 Personal history of other diseases of the musculoskeletal system and connective tissue; Z87.19 Personal history of other diseases of the digestive system; Z86.59 Personal history of other mental and behavioral disorders
CPT/HCPCS: 71010; 80048; 82550; 82552; 83880; 84484; 85025; 85379; 93005; 94640; 94664; 96374; 99285; J2930

== ENCOUNTER 2016-04-12 10:03 | Observation (INO) | payer OTHER ==
[~2016-04-12] VITALS: Ht 180.3 cm; Wt 137.0 kg
[2016-04-12] VITALS (7 sets, daily range): BP systolic 138–165; BP diastolic 67–79; PULSE 82–100; RESP 16–24; TEMP 98.2–98.4; O2SAT 96–100
[~2016-04-12 10:03] MED LIST changes: +PRED10PA2 PO; +TUSSSUS2 PO
--- NOTE | 2016-04-12 11:39 | PD ---
HPI Chief Complaint: Respiratory Distress Time Seen by Provider: 11:38 Travel History International Travel<30 days: No Contact w/Intl Traveler<30days: No Traveled to known affect area: No History of Present Illness HPI 60-year-old male came to the emergency room with history of shortness of breath on exertion, chest pain, generalized weakness, cough for past month and a half. Patient says that he was started on antibiotics for pneumonia a week ago. However his symptoms have not improved. He was told by his primary care from [place] to come to the emergency room. Patient is little confused and all over the place with his history. He did admit that he has issues with his memory. His vital signs in triage showed hypertension which slowly has improved after him coming in the room. He appears to be anxious. Patient does not require oxygen at home. He was afebrile in triage. He points to his entire chest when I asked him to the location of his pain. No specific radiation of this pain. Doesn't seem like there is anything that makes the pain better or worse. Currently his pain is 5 out of 10 in its a dull ache. PFSH Past Medical History Narrative Medical List of his past medical history is reviewed from the nursing note. Arthritis: Yes Asthma: Yes Anxiety: Yes Depression: Yes Cardiovascular Problems: No High Cholesterol: Yes Diabetes: Yes Diminished Hearing: No GERD: Yes Headaches: Yes Hypertension: Yes Psychiatric: Yes (PTSD) Pneumonia: Yes Sleep Apnea: Yes (DOES NOT USE CPAP) Past Surgical History Other Surgery: Yes (BACK SURGERY 1996) Social History Alcohol Use: Yes (rare) Tobacco Use: No Substance Use: No Allergies-Medications (Allergen,Severity, Reaction): Coded Allergies: Lisinopril (Verified Allergy, Severe, 04/12/16) ALLERGY Morphine (Verified Adverse Reaction, Severe, 04/12/16) DIARRHEA Comments List of his allergies reviewed from the nursing note. Reported Meds & Prescriptions Reported Meds & Active Scripts Active Reported Glucose (Dextrose) 4 Gm Chew 16 Gm PO DIRECTED PRN If needed may repeat in 15 minutes Bupropion HCl ER 24 HR (Bupropion HCl) 150 Mg Tab 450 Mg PO DAILY Novolin 70-30 Inj (Insulin Human Isoph/Insulin Regular) 1,000 Unit/10 Ml Vial 20 Units SQ DAILY IN THE PM Ventolin Hfa 18 GM Inh (Albuterol Sulfate) 90 Mcg/Act Aer 2 Puff INH QID PRN Metformin (Metformin HCl) 1,000 Mg Tab 1,000 Mg PO BIDPC With meals Losartan (Losartan Potassium) 100 Mg Tab 50 Mg PO DAILY Lamotrigine 200 Mg Tab 200 Mg PO DAILY MEDICATION ON HOLD Novolin 70-30 Inj (Insulin Human Isoph/Insulin Regular) 1,000 Unit/10 Ml Vial 15 Units SQ DAILY IN THE AM Hydrocodone-Acetaminophen 10-325 mg Tab 1 Tab PO TID PRN Glipizide 10 Mg Tab 20 Mg PO BIDAC Take 30 minutes before a meal Duloxetine DR (Duloxetine HCl) 60 Mg Capdr 60 Mg PO BID Flexeril (Cyclobenzaprine HCl) 10 Mg Tab 10 Mg PO Q8HR PRN Narrative Medication List of his home medications were reviewed from the nurses note. Review of Systems Except as stated in HPI: all other systems reviewed are Neg Physical Exam Narrative GENERAL: Awake, alert, anxious, moderate distress, morbidly obese SKIN: Warm and dry. HEAD: Atraumatic. Normocephalic. EYES: Pupils equal and round. No scleral icterus. No injection or drainage. ENT: No nasal bleeding or discharge. Mucous membranes pink and moist. NECK: Trachea midline. No JVD. CARDIOVASCULAR: Regular rate and rhythm. No murmur appreciated. RESPIRATORY: No accessory muscle use. Clear to auscultation. Breath sounds equal bilaterally. GASTROINTESTINAL: Abdomen soft, non-tender, nondistended. Hepatic and splenic margins not palpable. MUSCULOSKELETAL: No obvious deformities. No clubbing. No cyanosis. No edema. NEUROLOGICAL: Awake and alert. No obvious cranial nerve deficits. Motor grossly within normal limits. Normal speech. PSYCHIATRIC: Appropriate mood and affect; insight and judgment normal. Data Data Last Documented VS Vital Signs Date Time Temp Pulse Resp B/P Pulse Ox O2 Delivery O2 Flow Rate FiO2 04/12/16 13:45 88 23 165/74 100 Nasal Cannula 2.0 04/12/16 10:05 98.2 Orders Electrocardiogram (04/12/16 11:51) Basic Metabolic Panel (Bmp) (04/12/16 11:51) B-Type Natriuretic Peptide (04/12/16 11:51) Ckmb (Isoenzyme) Profile (04/12/16 11:51) Complete Blood Count With Diff (04/12/16 11:51) Magnesium (Mg) (2/7/17 11:51) Prothrombin Time / Inr (Pt) (04/12/16 11:51) Act Partial Throm Time (Ptt) (04/12/16 11:51) Troponin I (04/12/16 11:51) Lipase (04/12/16 11:51) Chest, Single Ap (04/12/16 11:51) Ecg Monitoring (04/12/16 11:51) Bilateral Bp Monitoring (04/12/16 11:51) Iv Access Insert/Monitor (04/12/16 11:51) Oximetry (04/12/16 11:51) Oxygen Administration (04/12/16 11:51) Sodium Chloride 0.9% Flush (Ns Flush) (04/12/16 12:00) Aspirin Chew (Aspirin Chew) (04/12/16 12:15) CKMB (04/12/16 13:36) CKMB% (04/12/16 13:36) Dextrose 50% In Wang (Vial) Inj (D50w (Vi (04/12/16 15:15) Diet Heart Healthy (04/12/16 Dinner) Admit Order (Ed Use Only) (04/12/16 16:04) Labs Laboratory Tests Test 04/12/16 13:36 White Blood Count 11.4 TH/MM3 Red Blood Count 5.01 MIL/MM3 Hemoglobin 11.7 GM/DL Hematocrit 36.6 % Mean Corpuscular Volume 73.0 FL Mean Corpuscular Hemoglobin 23.4 PG Mean Corpuscular Hemoglobin 32.0 % Concent Red Cell Distribution Width 15.3 % Platelet Count 305 TH/MM3 Mean Platelet Volume 6.5 FL Neutrophils (%) (Auto) 51.9 % Lymphocytes (%) (Auto) 36.1 % Monocytes (%) (Auto) 8.5 % Eosinophils (%) (Auto) 3.1 % Basophils (%) (Auto) 0.4 % Neutrophils # (Auto) 5.9 TH/MM3 Lymphocytes # (Auto) 4.1 TH/MM3 Monocytes # (Auto) 1.0 TH/MM3 Eosinophils # (Auto) 0.4 TH/MM3 Basophils # (Auto) 0.0 TH/MM3 CBC Comment AUTO DIFF Differential Comment AUTO DIFF CONFIRMED Platelet Estimate NORMAL Platelet Morphology Comment NORMAL Prothrombin Time 10.6 SEC Prothromb Time International 1.0 RATIO Ratio Activated Partial 27.3 SEC Thromboplast Time Sodium Level 138 MEQ/L Potassium Level 4.3 MEQ/L Chloride Level 103 MEQ/L Carbon Dioxide Level 23.5 MEQ/L Anion Gap 12 MEQ/L Blood Urea Nitrogen 15 MG/DL Creatinine 1.08 MG/DL Estimat Glomerular Filtration 85 ML/MIN Rate Random Glucose 46 MG/DL Calcium Level 9.0 MG/DL Magnesium Level 2.1 MG/DL Total Creatine Kinase 318 U/L Creatine Kinase MB 2.5 NG/ML Creatine Kinase MB % 0.8 % Troponin I 0.02 NG/ML B-Type Natriuretic Peptide 3 PG/ML Lipase 145 U/L [facility] Medical Decision Making Medical Screen Exam Complete: Yes Emergency Medical Condition: Yes Medical Record Reviewed: Yes Interpretation(s) Twelve-lead EKG was reviewed by me. Normal sinus rhythm, normal axis, nonspecific ST-T wave changes. Heart rate of 84 bpm. Differential Diagnosis Pneumonia, CHF, ACS Narrative Course 12:11 PM awaiting for the blood test results and the x-ray to be done and resulted. Patient's complains are extensive and vague. However I am concerned about the chest pain and the shortness of breath could be related to it. Patient does have risk factors in the form of obesity, hypertension and almost being 61 years old. If the workup comes back to be negative I will admit him in chest pain center to be ruled out for ACS. I'll give him 2 baby aspirin in the meanwhile. 3:10 PM patient's blood test results finally came back. His blood sugar is 46. I've ordered 1 amp of D50. Patient will be admitted. Awaiting for the hospitalist to call back. Procedures EKG Prior to Arrival: No Diagnosis Primary Impression: Chest pain Qualified Code: R07.9 - Chest pain, unspecified type Additional Impression: Hypoglycemia Arian Irby MD Apr 12, 2016 11:39
[2016-04-12] MEDS ORDERED: ASPIRIN 81 MG CHEW TAB CHEW ONE (12:15)
[2016-04-12] MEDS ORDERED: BUPR150T3 PO (12:32)
[2016-04-12] MEDS ORDERED: GLUC4CHW PO (12:32)
--- NOTE | 2016-04-12 13:08 | RADRPT ---
EXAM DATE/TIME: 04/12/2016 12:03 [facility] COMPARISON: CHEST SINGLE AP, March 31, 2016, 18:35. INDICATIONS : Coughing, short of breath, recent pneumonia MEDICAL HISTORY : pneumonia SURGICAL HISTORY : None. ENCOUNTER: Initial ACUITY: 3 days PAIN SCORE: 0/10 LOCATION: Bilateral chest FINDINGS: A single view of the chest demonstrates the lungs to be symmetrically aerated without evidence of mas s, infiltrate or effusion. The cardiomediastinal contours are unremarkable. Osseous structures are intact. There are overlying electrocardiogram leads. CONCLUSION: No acute disease. There is no evidence of pneumonia. Miky Osorio MD on April 12, 2016 at 13:06 Board Certified Radiologist. This report was verified electronically.
[2016-04-12] MEDS: SODIUM CHLORIDE 0.9% FLUSH 5 ML FLUSH IVF PRN ×2 (13:33→15:20)
[2016-04-12 14:04] LABS: AUTOMATED NEUTROPHIL # 5.9 TH/MM3 (1.8-7.7); BASOPHIL % 0.4 % (0.0-2.0); EOSINOPHIL # 0.4 TH/MM3 (0-0.4); EOSINOPHIL % 3.1 % (0.0-4.0); HEMATOCRIT 36.6 % (39.0-51.0); LYMPH % 36.1 % (9.0-44.0); LYMPHOCYTE # 4.1 TH/MM3 (1.0-4.8); MEAN CORPUSCULAR HEMOGLOBIN 23.4 PG (27.0-34.0); MONO % 8.5 % (0.0-8.0); NEUT % 51.9 % (16.0-70.0); PLATELET COUNT 305 TH/MM3 (150-450); RED BLOOD COUNT 5.01 MIL/MM3 (4.50-5.90); RED CELL DISTRIBUTION WIDTH 15.3 % (11.6-17.2); WHITE BLOOD COUNT 11.4 TH/MM3 (4.0-11.0)
[2016-04-12 14:05] LABS: APTT (PATIENT) 27.3 SEC (24.3-30.1); PROTHROMBIN TIME - PATIENT 10.6 SEC (9.8-11.6)
[2016-04-12 14:11] LABS: HEMO FLAGS AUTO DIFF
[2016-04-12 14:19] LABS: POTASSIUM 4.3 MEQ/L (3.5-5.1)
[2016-04-12 14:56] LABS: PLATELET ESTIMATE SMEAR NORMAL (NORMAL); PLATELET MORPHOLOGY NORMAL (NORMAL); SCAN/DIFF AUTO DIFF CONFIRMED
[2016-04-12 15:00] LABS: BICARBONATE 23.5 MEQ/L (21.0-32.0); MAGNESIUM 2.1 MG/DL (1.5-2.5)
[2016-04-12] MEDS ORDERED: DEXTROSE 50% IN WATER 50 ML VIAL(D50) IV PUSH ONE (15:15)
[2016-04-12 15:29] LABS: CKMB 2.5 NG/ML (0.5-3.6)
--- NOTE | 2016-04-12 16:17 | HHI.HP ---
[facility] Service Family Medicine Primary Care Physician [facility] Admission Diagnosis chest pain, rule out ACS, hypoglycemia Diagnoses: Chief Complaint: chest pain International Travel<30 Days: No Contact w/Intl Traveler<30days: No Known Affected Area: No History of Present Illness 60 y/o -[place] male presents with chest pain. Initially developed a cough last week, was seen at the [place] last week and diagnosed with pneumonia. Completed course of antibiotics, unsure of the name. Had trouble sleeping last night, then woke up this morning. Has had some chest discomfort for a couple weeks. Denies any new onset of chest pain. Describes it as discomfort. Now, he feels he has general malaise. Has SOB on exertion. Also having lightheadedness, dizziness. Also having shoulder/neck aches. Feels tired and not his normal self. No history of heart disease. Thinks his mother had some heart disease. Has history of asthma and as albuterol. Has history of diabetes, been on insulin for several years, denies any hypoglycemia spells. Has history of GERD. (Luis Eduardo Max MD R1) Review of Systems Constitutional: DENIES: Fever, Chills, Night Sweats Eyes: DENIES: Blurred vision, Vision loss Ears, nose, mouth, throat: DENIES: Hearing loss, Oral lesions, Throat pain, Ear Pain Respiratory: COMPLAINS OF: Cough, Sputum production, Shortness of breath Cardiovascular: COMPLAINS OF: Chest pain, DENIES: Palpitations, Syncope, Lower Extremity Edema Gastrointestinal: COMPLAINS OF: Diarrhea, DENIES: Abdominal pain, Black stools , Bloody stools, Constipation, Nausea, Vomiting Genitourinary: DENIES: Urinary frequency, Dysuria Musculoskeletal: COMPLAINS OF: Muscle aches, DENIES: Joint pain, Back pain Integumentary: DENIES: Rash Hematologic/lymphatic: DENIES: Bruising, Lymphadenopathy Neurologic: DENIES: Headache, Paresthesias Psychiatric: COMPLAINS OF: Anxiety, Confusion (Luis Eduardo Max MD R1) Past Family Social History Past Medical History Asthma DM-been on insulin for 2 years HTN Depression/anxiety Chronic back pain Past Surgical History Back surgery '98 Reported Medications Reported Meds & Active Scripts Active Reported Glucose (Dextrose) 4 Gm Chew 16 Gm PO DIRECTED PRN If needed may repeat in 15 minutes Bupropion HCl ER 24 HR (Bupropion HCl) 150 Mg Tab 450 Mg PO DAILY Novolin 70-30 Inj (Insulin Human Isoph/Insulin Regular) 1,000 Unit/10 Ml Vial 20 Units SQ DAILY IN THE PM Ventolin Hfa 18 GM Inh (Albuterol Sulfate) 90 Mcg/Act Aer 2 Puff INH QID PRN Metformin (Metformin HCl) 1,000 Mg Tab 1,000 Mg PO BIDPC With meals Losartan (Losartan Potassium) 100 Mg Tab 50 Mg PO DAILY Lamotrigine 200 Mg Tab 200 Mg PO DAILY MEDICATION ON HOLD Novolin 70-30 Inj (Insulin Human Isoph/Insulin Regular) 1,000 Unit/10 Ml Vial 15 Units SQ DAILY IN THE AM Hydrocodone-Acetaminophen 10-325 mg Tab 1 Tab PO TID PRN Glipizide 10 Mg Tab 20 Mg PO BIDAC Take 30 minutes before a meal Duloxetine DR (Duloxetine HCl) 60 Mg Capdr 60 Mg PO BID Flexeril (Cyclobenzaprine HCl) 10 Mg Tab 10 Mg PO Q8HR PRN (Luis Eduardo Max MD R1) Allergies: Coded Allergies: Lisinopril (Verified Allergy, Severe, 04/12/16) ALLERGY Morphine (Verified Adverse Reaction, Severe, 04/12/16) DIARRHEA Active Ordered Medications Active Medications Aspirin (Aspirin Chew) 162 mg ONCE ONCE CHEW Last administered on 04/12/16 13: 33; Admin Dose 162 MG; Start 04/12/16 at 12:15; Stop 04/12/16 at 12:21; Status DC Dextrose (D50w (Vial) Inj) 50 ml ONCE ONCE IV PUSH Last administered on 15:20; Admin Dose 50 ML; Start 04/12/16 at 15:15; Stop 04/12/16 at 15:16; Status DC IV Flush (NS Flush) 2 ml UNSCH PRN IVF Last administered on 04/12/16 15:20; Admin Dose 2 ML; Start 04/12/16 at 12:00 Family History Mother-breast cancer Father-alcoholic Social History Used to smoke, 1/2 PPD for 30 years Used to drink alcohol heavily, quit last couple years Marijuana use in the past (Luis Eduardo Max MD R1) Physical Exam Vital Signs Vital Signs Date Time Temp Pulse Resp B/P Pulse Ox O2 Delivery O2 Flow Rate FiO2 04/12/16 13:45 88 23 165/74 100 Nasal Cannula 2.0 04/12/16 12:05 86 24 141/67 98 Room Air 138/74 04/12/16 12:04 97 Room Air 04/12/16 12:04 90 24 141/67 98 Room Air 04/12/16 12:04 Nasal Cannula 2.0 04/12/16 10:05 98.2 100 16 144/79 98 Room Air Physical Exam GENERAL: Not diaphoretic. Negative Lavines sign. No acute distress. EYES: PERRLA- pupils are slightly constricted. EOMI. Lids and conjunctivae reveal no gross abnormality. No scleral icterus. ENT: Hearing adequate. Head NCAT. MMM. OP/OC clear. No cervical or supraclavicular LAD. NECK: No JVD. No carotid bruits. Neck supple, no masses. Trachea midline. No thyromegaly. RESPIRATORY: No evidence of pulmonary edema. Distant lung sounds. Lungs essentially CTAB, no wheezing, crackles, or increased WOB. CARDIOVASCULAR: Regular rate and rhythm, no murmurs or rubs. Radial and DP pulses 2+ and symmetric bilaterally. Brisk capillary refill. ABDOMEN: S/ NT/ND. Bowel sounds x 4. No masses or pulsations present. No hepatosplenomegaly. EXTREMITIES: No remarkable dependent edema or varicosities. No clubbing, cyanosis, or erythema. MUSCULOSKELETAL: MAEW without significant joint pain or deformity. Strength 5/5 in upper and lower extremities. No calf tenderness. Negative Yann's sign SKIN: Essentially clear with no significant rash or lesions. Adequate skin turgor. NEUROLOGICAL: NFND. Cranial nerves 2-12 grossly intact. Reflexes +2, symmetric bilaterally in upper and lower extremities. PSYCHIATRIC: Mental status normal for age. Laboratory Laboratory Tests Test 04/12/16 13:36 White Blood Count 11.4 Red Blood Count 5.01 Hemoglobin 11.7 Hematocrit 36.6 Mean Corpuscular Volume 73.0 Mean Corpuscular Hemoglobin 23.4 Mean Corpuscular Hemoglobin 32.0 Concent Red Cell Distribution Width 15.3 Platelet Count 305 Mean Platelet Volume 6.5 Neutrophils (%) (Auto) 51.9 Lymphocytes (%) (Auto) 36.1 Monocytes (%) (Auto) 8.5 Eosinophils (%) (Auto) 3.1 Basophils (%) (Auto) 0.4 Neutrophils # (Auto) 5.9 Lymphocytes # (Auto) 4.1 Monocytes # (Auto) 1.0 Eosinophils # (Auto) 0.4 Basophils # (Auto) 0.0 CBC Comment AUTO DIFF Differential Comment AUTO DIFF CONFIRMED Platelet Estimate NORMAL Platelet Morphology Comment NORMAL Prothrombin Time 10.6 Prothromb Time International 1.0 Ratio Activated Partial 27.3 Thromboplast Time Sodium Level 138 Potassium Level 4.3 Chloride Level 103 Carbon Dioxide Level 23.5 Anion Gap 12 Blood Urea Nitrogen 15 Creatinine 1.08 Estimat Glomerular Filtration 85 Rate Random Glucose 46 Calcium Level 9.0 Magnesium Level 2.1 Total Creatine Kinase 318 Creatine Kinase MB 2.5 Creatine Kinase MB % 0.8 Troponin I 0.02 B-Type Natriuretic Peptide 3 Lipase 145 (Luis Eduardo Max MD R1) Result Diagram: 04/12/16 1336 04/12/16 1336 Imaging Last Impressions Chest X-Ray 04/12/16 1151 Signed Impressions: Service Date/Time: Tuesday, April 12, 2016 12:03 - CONCLUSION: No acute disease. There is no evidence of pneumonia. Miky Osorio MD (Luis Eduardo Max MD R1) Assessment and Plan Assessment and Plan 60-year-old male with history of asthma, diabetes, HTN presents with chest pain and shortness of breath. Will admit for ACS rule out. Code Status Full Discussed Condition With Dr. Silva (Luis Eduardo Max MD R1) Attending Attestation THIS CASE WAS DISCUSSED WITH THE RESIDENT PHYSICIAN. I HAVE REVIEWED THE RECORD AND AGREE WITH THE ABOVE NOTE AND PLAN OF CARE WAS DISCUSSED. I HAVE AUTHORIZED THE ORDER FOR PLACEMENT IN OUT-PATIENT OBSERVATION STATUS. (Luiz Israel MD) Problem List: (1) Chest pain Status: Acute Plan: -DDx includes ACS, GERD, PE, pneumonia, panic attack, myocarditis, costochondritis. -CAD risk factors include obesity, smoking hx, FH of [place], HTN, HLD, DM. -EKG showed normal sinus rhythm -CXR showed no acute disease -Initial Trop 0.02. Trend Savi and EKGs x 2. If 2nd trop. is sig. increased, notify cardiology -Supplemental O2. Daily aspirin. Protonix. -Morphine 2mg Q2 hrs PRN chest pain only. -Tele. -AM BMP + Mg to detect/correct electrolyte abnormalities that could lower arrythmia threshold. (2) Hypoglycemia Status: Acute Plan: Glucose 46 on admission. Asymptomatic. Hasn't eaten in 6 hours. Is on home metformin 1000 twice a day, glipizide 20 mg twice a day Novolin 15 units in the a.m., 20 units in the p.m. -Continue to monitor glucose -Low-dose sliding scale (3) DM (diabetes mellitus) Status: Acute Plan: On chronic insulin use See plan above Monitor blood sugar (4) Hypertension Status: Acute Plan: Blood pressure 144/79 on admission. Continue home meds: Losartan 50 mg daily Clonidine 0.1mg PRN elevated BP (5) Anxiety Status: Acute Plan: Continue home meds: Wellbutrin, Cymbalta (6) Chronic back pain Status: Acute Plan: Continue home Flexeril, hydrocodone/acetaminophen 10/325 one tab by mouth 3 times a day when necessary (7) FEN Status: Acute Plan: Fluids: none, tolerating PO Electrolytes: wnl, continue to monitor Nutrition: heart healthy diet DVT ppx: lovenox 40mg SQ daily (Luis Eduardo Max MD R1) Problem Qualifiers (1) Chest pain: Qualified Code: R07.9 - Chest pain, unspecified type (2) DM (diabetes mellitus): Qualified Code: E11.9 - Type 2 diabetes mellitus without complication, with long-term current use of insulin (3) Hypertension: Qualified Code: I10 - Essential hypertension (4) Chronic back pain: Qualified Code: M54.5 - Chronic bilateral low back pain without sciatica Luis Eduardo Max MD R1 Apr 12, 2016 16:17 Luiz Israel MD Apr 14, 2016 08:13
[2016-04-12] MEDS ORDERED: CYCLOBENZAPRINE HCL 10 MG TAB PO PRN (17:00)
[2016-04-12] MEDS ORDERED: ONDANSETRON HCL 4 MG/2 ML VIAL IVP PRN (17:00)
[2016-04-12] MEDS ORDERED: ALBUTEROL SULFATE 90 MCG/ACT HFA 8 GM INHALER INH PRN (17:00)
[2016-04-12] MEDS ORDERED: ACETAMINOPHEN 325 MG TAB PO PRN (17:00)
[2016-04-12] MEDS ORDERED: ACETAMINOPHEN/HYDROcodone 325 MG/10 MG TAB PO PRN (17:00)
[2016-04-12] MEDS ORDERED: NALOXONE HCL 0.4 MG/ML AMP IV PRN (17:00)
[2016-04-12] MEDS ORDERED: SODIUM CHLORIDE 0.9% FLUSH 5 ML FLUSH FLUSH PRN (17:00)
[2016-04-12] MEDS ORDERED: cloNIDine HCL 0.1 MG TAB PO PRN (17:15)
[2016-04-12] MEDS ORDERED: DEXTROSE 50% IN WATER 50 ML VIAL(D50) IV PUSH PRN (17:45)
[2016-04-12] MEDS ORDERED: GLUCAGON 1 MG/ML VIAL OTHER PRN (17:45)
[2016-04-12] MEDS ORDERED: ENOXAPARIN SODIUM 40 MG/0.4 ML SYRINGE SQ SCH (18:00)
[2016-04-12] MEDS: MORPHINE SULFATE 4 MG/ML INJ IV PRN ×2 (19:10→22:33)
[2016-04-12] MEDS: INSULIN ASPART SUPPLEMENTAL SCALE SQ SCH (20:06)
[2016-04-12] MEDS: DULoxetine HCl DR 60 MG CAP PO SCH (20:07)
[2016-04-12] MEDS: SODIUM CHLORIDE 0.9% FLUSH 5 ML FLUSH FLUSH SCH (20:07)
[2016-04-13 01:58] VITALS: BP 128/58; PULSE 85; RESP 18; TEMP 98.6; O2SAT 94
[2016-04-13] MEDS: INSULIN ASPART SUPPLEMENTAL SCALE SQ SCH ×2 (06:01→11:00)
[2016-04-13] MEDS: MORPHINE SULFATE 4 MG/ML INJ IV PRN (06:03)
[2016-04-13 06:07] VITALS: BP 146/85; PULSE 81; RESP 18; TEMP 98.8; O2SAT 94
[2016-04-13 06:27] LABS: BASOPHIL % 0.5 % (0.0-2.0); EOSINOPHIL # 0.4 TH/MM3 (0-0.4); EOSINOPHIL % 4.1 % (0.0-4.0); HEMATOCRIT 34.8 % (39.0-51.0); LYMPH % 33.5 % (9.0-44.0); LYMPHOCYTE # 3.2 TH/MM3 (1.0-4.8); MEAN CELL VOLUME 73.6 FL (80.0-100.0); MEAN CORPUSCULAR HEMOGLOBIN 23.5 PG (27.0-34.0); MEAN CORPUSCULAR HGB CONC 31.9 % (32.0-36.0); MONO % 8.7 % (0.0-8.0); NEUT % 53.2 % (16.0-70.0); PLATELET COUNT 276 TH/MM3 (150-450); RED BLOOD COUNT 4.73 MIL/MM3 (4.50-5.90); RED CELL DISTRIBUTION WIDTH 15.3 % (11.6-17.2); WHITE BLOOD COUNT 9.4 TH/MM3 (4.0-11.0)
[2016-04-13 06:32] LABS: HEMO FLAGS AUTO DIFF
[2016-04-13 06:44] LABS: ANION GAP 8 MEQ/L (5-15); BICARBONATE 25.3 MEQ/L (21.0-32.0); BLOOD UREA NITROGEN 14 MG/DL (7-18); CHLORIDE 102 MEQ/L (98-107); GLOMERULAR FILTRATION RATE 82 ML/MIN (>89); POTASSIUM 4.8 MEQ/L (3.5-5.1); SODIUM (NA) 135 MEQ/L (136-145)
[2016-04-13 06:47] LABS: HDL CHOLESTEROL 37.4 MG/DL (40.0-60.0); LDL CHOLESTEROL 121 MG/DL (0-99)
[2016-04-13 07:49] VITALS: BP 132/75; PULSE 87; RESP 16; TEMP 98.1; O2SAT 96
[2016-04-13 07:53] VITALS: O2SAT 97
[2016-04-13 08:02] LABS: PLATELET ESTIMATE SMEAR NORMAL (NORMAL); PLATELET MORPHOLOGY NORMAL (NORMAL); SCAN/DIFF AUTO DIFF CONFIRMED
[2016-04-13] MEDS: DULoxetine HCl DR 60 MG CAP PO SCH (08:33)
[2016-04-13] MEDS: SODIUM CHLORIDE 0.9% FLUSH 5 ML FLUSH FLUSH SCH (08:33)
[2016-04-13] MEDS ORDERED: PANTOPRAZOLE SOD 40 MG DELAYED RELEASE TAB PO SCH (09:00)
[2016-04-13] MEDS ORDERED: buPROPion HCL 100 MG SUSTAINED RELEASE TAB PO SCH (09:00)
[2016-04-13] MEDS ORDERED: LOSARTAN 50 MG TAB PO SCH (09:00)
[2016-04-13] MEDS ORDERED: ASPIRIN EC 325 MG TABEC PO SCH (09:00)
--- NOTE | 2016-04-13 10:10 | HHI.FPPN ---
Subjective Remarks FM Attending Note: Patient seen and examined. S: Chart and all resident physician notes reviewed. In summary this is a 60 year old male who was admitted with an admission diagnosis of Chest Pain, R/O Acs, Hypoglycemia. This patient was recently treated for a URI/pneumonia with antibiotics at the [facility]. Following treatment has noted malaise and some chest pain. Pain mostly with movement and cough; transient lasting only a few seconds. No diaphoresis or radiation of pain. Deconditioned with some SOB noted with exertion. He is diabetic. Recalls being on a "statin" at one time for cholesterol. Objective Vitals Vital Signs Date Time Temp Pulse Resp B/P Pulse Ox O2 Delivery O2 Flow Rate FiO2 04/13/16 07:53 97 21 04/13/16 07:49 98.1 87 16 132/75 96 04/13/16 06:07 98.8 81 18 146/85 94 04/13/16 01:58 98.6 85 18 128/58 94 04/12/16 23:11 96 Nasal Cannula 2.00 04/12/16 20:34 98.4 82 18 138/75 96 04/12/16 18:08 89 24 151/78 99 Nasal Cannula 2.0 04/12/16 13:45 88 23 165/74 100 Nasal Cannula 2.0 04/12/16 12:05 86 24 141/67 98 Room Air 138/74 04/12/16 12:04 97 Room Air 04/12/16 12:04 90 24 141/67 98 Room Air 04/12/16 12:04 Nasal Cannula 2.0 I/O 04/12/16 04/12/16 04/12/16 04/13/16 04/13/16 04/13/16 07:00 15:00 23:00 07:00 15:00 23:00 Output Total 300 ml Balance -300 ml Output Urine Total 300 ml # Voids 1 1 Result Diagram: 04/13/16 0550 04/13/16 0550 Other Results Item Value Date Time Random Glucose 46 MG/DL *L 04/12/16 1336 Random Glucose 120 MG/DL H 04/13/16 0550 Magnesium Level 2.1 MG/DL 04/12/16 1336 Total Creatine Kinase 318 U/L H 04/12/16 1336 Creatine Kinase MB 2.5 NG/ML 04/12/16 1336 Creatine Kinase MB % 0.8 % 04/12/16 1336 Troponin I 0.02 NG/ML 04/12/16 1336 Troponin I LESS THAN 0.02 NG/ML L 04/13/16 0003 Troponin I LESS THAN 0.02 NG/ML L 04/13/16 0550 B-Type Natriuretic Peptide 3 PG/ML 04/12/16 1336 Triglycerides Level 191 MG/DL H 04/13/16 0550 Cholesterol Level 197 MG/DL 04/13/16 0550 LDL Cholesterol 121 MG/DL H 04/13/16 0550 HDL Cholesterol 37.4 MG/DL L 04/13/16 0550 Cholesterol/HDL Ratio 5.26 RATIO 04/13/16 0550 Lipase 145 U/L 04/12/16 1336 Serial EKG's show not acute changes. Imaging Last 48 hours Impressions Chest X-Ray 04/12/16 1151 Signed Impressions: Service Date/Time: Tuesday, April 12, 2016 12:03 - CONCLUSION: No acute disease. There is no evidence of pneumonia. Miky Osorio MD Objective Remarks O. CONSTITUTIONAL/GEN: normally nourished with elevated BMI, in NAD. EYES: conjunctiva normal, PERRLA, EOMI. NECK: thyroid midline, carotids symmetrical. LUNGS: clear A-P, respiratory effort is normal. CARDIOVASCULAR: RR without murmur or gallop. No significant edema. GI/ABD: soft without masses, without organomegaly. NEURO: No focal deficits. MUSC: back is normal in appearance. Extremities are normal in appearance. PSYCH/MENTAL STATUS: Alert and oriented x 3. A/P Assessment and Plan 60-year-old male with history of asthma, diabetes, HTN presents with chest pain and shortness of breath. Will admit for ACS rule out. Problem List: (1) Chest pain Status: Acute Plan: -DDx includes ACS, GERD, PE, pneumonia, panic attack, myocarditis, costochondritis. -CAD risk factors include obesity, smoking hx, FH of [place], HTN, HLD, DM. -EKG showed normal sinus rhythm -CXR showed no acute disease -Initial Trop 0.02. Trend Savi and EKGs x 2. If 2nd trop. is sig. increased, notify cardiology -Supplemental O2. Daily aspirin. Protonix. -Morphine 2mg Q2 hrs PRN chest pain only. -Tele. -AM BMP + Mg to detect/correct electrolyte abnormalities that could lower arrythmia threshold. 04/13/16 Enzymes and EKG's show no changes suggestive of an acute cardiac condition. Chest pain described is atypical; seems to be related to chest wall pain form recent pneumonia/cough. DM and mild hyperlipidemia are risk factors for cardiac disease and he will f/u for ongoing care at the [facility] for chronic management. (2) Hypoglycemia Status: Acute Plan: Glucose 46 on admission. Asymptomatic. Hasn't eaten in 6 hours. Is on home metformin 1000 twice a day, glipizide 20 mg twice a day Novolin 15 units in the a.m., 20 units in the p.m. -Continue to monitor glucose -Low-dose sliding scale (3) DM (diabetes mellitus) Status: Acute Plan: On chronic insulin use See plan above Monitor blood sugar (4) Hypertension Status: Acute Plan: Blood pressure 144/79 on admission. Continue home meds: Losartan 50 mg daily Clonidine 0.1mg PRN elevated BP (5) Anxiety Status: Acute Plan: Continue home meds: Wellbutrin, Cymbalta (6) Chronic back pain Status: Acute Plan: Continue home Flexeril, hydrocodone/acetaminophen 10/325 one tab by mouth 3 times a day when necessary (7) FEN Status: Acute Plan: Fluids: none, tolerating PO Electrolytes: wnl, continue to monitor Nutrition: heart healthy diet DVT ppx: lovenox 40mg SQ daily Problem Qualifiers (1) Chest pain: Qualified Code: R07.9 - Chest pain, unspecified type (2) DM (diabetes mellitus): Qualified Code: E11.9 - Type 2 diabetes mellitus without complication, with long-term current use of insulin (3) Hypertension: Qualified Code: I10 - Essential hypertension (4) Chronic back pain: Qualified Code: M54.5 - Chronic bilateral low back pain without sciatica Luiz Israel MD Apr 13, 2016 10:10
--- NOTE | 2016-04-13 10:56 | HHI.DCPOC ---
Discharge Care Plan Diagnosis: (1) Chest wall pain (2) Hypoglycemia (3) DM (diabetes mellitus) (4) Chest pain Goals to Promote Your Health * To prevent worsening of your condition and complications * To maintain your health at the optimal level Directions to Meet Your Goals Take your medications as prescribed Follow your dietary instruction Follow activity as directed Keep your appointments as scheduled Take your immunizations and boosters as scheduled If your symptoms worsen call your PCP, if no PCP go to Urgent Care Center or Emergency Room Smoking is Dangerous to Your Health. Avoid second hand smoke Call the 24-hour hour crisis hotline for domestic abuse at Fausto Silva MD R2 Apr 13, 2016 10:56
--- NOTE | 2016-04-13 18:59 | EKG ---
Date Performed: 04/13/2016 Time Performed: 01:58:24 PTAGE: 60 years EKG: Sinus rhythm POSSIBLE INFERIOR MYOCARDIAL INFARCTION BORDERLINE ECG PREVIOUS TRACING : 04/12/2016 20.40 Compared to prior tracing no significant change DOCTOR: Roel Cabrera Interpretating Date/Time 04/13/2016 18:58:31
--- NOTE | 2016-04-13 22:16 | EKG ---
Date Performed: 04/12/2016 Time Performed: 20:40:50 PTAGE: 60 years EKG: Sinus rhythm NORMAL ECG PREVIOUS TRACING : 04/12/2016 13.10 Compared to prior tracing no significant change DOCTOR: Reol Cabrera Interpretating Date/Time 04/13/2016 22:16:40
--- NOTE | 2016-04-13 22:55 | EKG ---
Date Performed: 04/12/2016 Time Performed: 13:10:27 PTAGE: 60 years EKG: Sinus rhythm NORMAL ECG PREVIOUS TRACING : 03/31/2016 18.53 Compared to prior tracing no significant change DOCTOR: Roel Cabrera Interpretating Date/Time 04/13/2016 22:53:32
== END 2016-04-13 12:05 | disposition home or self-care (01) ==
LOC: NEPB 10:03 → NEDA 16:06 → NEPGCP 19:33
PROVIDERS: ADMIT Family Medicine; ATTEND Family Medicine
DX: R07.89 Other chest pain (principal); I10 Essential (primary) hypertension; E11.649 Type 2 diabetes mellitus with hypoglycemia without coma; M54.5 Low back pain; G89.29 Other chronic pain; E78.5 Hyperlipidemia, unspecified; F43.10 Post-traumatic stress disorder, unspecified; E78.00 Pure hypercholesterolemia, unspecified; E66.9 Obesity, unspecified; G47.30 Sleep apnea, unspecified; J45.909 Unspecified asthma, uncomplicated; K21.9 Gastro-esophageal reflux disease without esophagitis; Z87.01 Personal history of pneumonia (recurrent); Z79.4 Long term (current) use of insulin; Z87.891 Personal history of nicotine dependence; R94.31 Abnormal electrocardiogram [ECG] [EKG]; Z68.41 Body mass index [BMI] 40.0-44.9, adult
CPT/HCPCS: 71010; 80048; 80061; 82550; 82552; 82948; 83690; 83735; 83880; 84484; 85025; 85610; 85730; 93005; 96374; 99285; G0378; J1650; J2270; J2405

== ENCOUNTER 2016-04-19 11:12 | Emergency (ER) | payer OTHER ==
[~2016-04-19] VITALS: Ht 180.3 cm; Wt 133.0 kg
[~2016-04-19 11:12] MED LIST changes: +BUPR150T3 PO; -CALC1TAB87 PO; +GLUC4CHW PO; -PRED10PA2 PO; -TUSSSUS2 PO
[2016-04-19 11:13] VITALS: BP 150/70; PULSE 92; RESP 12; TEMP 98.4; O2SAT 96
--- NOTE | 2016-04-19 12:37 | PD ---
HPI Chief Complaint: Cardiac Complaint Time Seen by Provider: 12:37 Travel History International Travel<30 days: No Contact w/Intl Traveler<30days: No Traveled to known affect area: No History of Present Illness HPI 60-year-old male with PMH of DM, chronic back pain, recent pneumonia diagnosis presents to the ED for evaluation of dyspnea on exertion, rib pain with deep breathing. He states that he feels as if he is having difficulties moving air. He states that he was diagnosed with musculoskeletal chest pain in the past and that this pain is exactly the same. He denies fevers, cough, chills, chest pain, palpitations, diaphoresis, nausea, vomiting, abdominal pain, dysuria, back pain. He states that during the course of his pneumonia treatment he was sedentary. Denies leg pain. He repeatedly states "It's not my heart." PFSH Past Medical History Arthritis: Yes Asthma: Yes Anxiety: Yes Depression: Yes Cardiovascular Problems: Yes High Cholesterol: Yes Diabetes: Yes Patient Takes Glucophage: No Diminished Hearing: No Gastrointestinal Disorders: Yes GERD: Yes Headaches: Yes Hypertension: Yes Psychiatric: Yes (PTSD) Respiratory: Yes (ASTHMA ) Pneumonia: Yes Sleep Apnea: Yes (DOES NOT USE CPAP) Past Surgical History Other Surgery: Yes (BACK SURGERY 1996) Social History Alcohol Use: No Tobacco Use: No Substance Use: No Allergies-Medications (Allergen,Severity, Reaction): Coded Allergies: Lisinopril (Verified Allergy, Severe, 04/19/16) ALLERGY Morphine (Verified Adverse Reaction, Severe, 04/19/16) DIARRHEA Reported Meds & Prescriptions Reported Meds & Active Scripts Active Reported Glucose (Dextrose) 4 Gm Chew 16 Gm PO DIRECTED PRN If needed may repeat in 15 minutes Bupropion HCl ER 24 HR (Bupropion HCl) 150 Mg Tab 450 Mg PO DAILY Novolin 70-30 Inj (Insulin Human Isoph/Insulin Regular) 1,000 Unit/10 Ml Vial 20 Units SQ DAILY IN THE PM Ventolin Hfa 18 GM Inh (Albuterol Sulfate) 90 Mcg/Act Aer 2 Puff INH QID PRN Metformin (Metformin HCl) 1,000 Mg Tab 1,000 Mg PO BIDPC With meals Losartan (Losartan Potassium) 100 Mg Tab 50 Mg PO DAILY Novolin 70-30 Inj (Insulin Human Isoph/Insulin Regular) 1,000 Unit/10 Ml Vial 15 Units SQ DAILY IN THE AM Hydrocodone-Acetaminophen 10-325 mg Tab 1 Tab PO TID PRN Glipizide 10 Mg Tab 20 Mg PO BIDAC Take 30 minutes before a meal Duloxetine DR (Duloxetine HCl) 60 Mg Capdr 60 Mg PO BID Flexeril (Cyclobenzaprine HCl) 10 Mg Tab 10 Mg PO Q8HR PRN Review of Systems Except as stated in HPI: all other systems reviewed are Neg Physical Exam Narrative GENERAL: Well-nourished, well-developed pleasant black male in no acute distress. SKIN: Warm and dry. HEAD: Normocephalic. EYES: No scleral icterus. No injection or drainage. NECK: Supple, trachea midline. No JVD or lymphadenopathy. CARDIOVASCULAR: Regular rate and rhythm without murmurs, gallops, or rubs. 2+ DP and radial pulses bilaterally. RESPIRATORY: Breath sounds clear and equal bilaterally. No accessory muscle use. GASTROINTESTINAL: Abdomen soft, non-tender, nondistended. Active bowel sounds. MUSCULOSKELETAL: No cyanosis, or edema. Homans sign negative bilaterally. BACK: Nontender without obvious deformity. No CVA tenderness. Data Data Last Documented VS Vital Signs Date Time Temp Pulse Resp B/P Pulse Ox O2 Delivery O2 Flow Rate FiO2 04/19/16 13:03 98 04/19/16 13:03 Room Air 04/19/16 11:13 98.4 92 12 150/70 Orders Electrocardiogram (04/19/16 ) Complete Blood Count With Diff (04/19/16 12:46) Comprehensive Metabolic Panel (04/19/16 12:46) B-Type Natriuretic Peptide (04/19/16 12:46) Act Partial Throm Time (Ptt) (04/19/16 12:46) Prothrombin Time / Inr (Pt) (04/19/16 12:46) Ckmb (Isoenzyme) Profile (04/19/16 12:46) Troponin I (04/19/16 12:46) Urinalysis - C+S If Indicated (04/19/16 12:46) Iv Access Insert/Monitor (04/19/16 12:46) Ecg Monitoring (04/19/16 12:46) Oximetry (04/19/16 12:46) Oxygen Administration (04/19/16 12:46) Chest, Single Ap (04/19/16 12:46) Sodium Chloride 0.9% Flush (Ns Flush) (04/19/16 13:00) D-Dimer (04/19/16 12:51) CKMB (04/19/16 12:54) CKMB% (04/19/16 12:54) Labs Laboratory Tests Test 04/19/16 04/19/16 12:45 12:54 Urine Color YELLOW Urine Turbidity CLEAR Urine pH 8.0 Urine Specific Ayer 1.022 Urine Protein NEG mg/dL Urine Glucose (UA) NEG mg/dL Urine Ketones NEG mg/dL Urine Occult Blood NEG Urine Nitrite NEG Urine Bilirubin NEG Urine Urobilinogen LESS THAN 2.0 MG/DL Urine Leukocyte Esterase NEG Urine RBC 1 /hpf Urine WBC 1 /hpf Urine Mucus FEW /lpf Microscopic Urinalysis Comment CULT NOT INDICATED White Blood Count 9.2 TH/MM3 Red Blood Count 4.91 MIL/MM3 Hemoglobin 11.5 GM/DL Hematocrit 36.0 % Mean Corpuscular Volume 73.4 FL Mean Corpuscular Hemoglobin 23.4 PG Mean Corpuscular Hemoglobin 31.9 % Concent Red Cell Distribution Width 14.9 % Platelet Count 323 TH/MM3 Mean Platelet Volume 7.0 FL Neutrophils (%) (Auto) 47.0 % Lymphocytes (%) (Auto) 36.3 % Monocytes (%) (Auto) 9.6 % Eosinophils (%) (Auto) 6.5 % Basophils (%) (Auto) 0.6 % Neutrophils # (Auto) 4.3 TH/MM3 Lymphocytes # (Auto) 3.3 TH/MM3 Monocytes # (Auto) 0.9 TH/MM3 Eosinophils # (Auto) 0.6 TH/MM3 Basophils # (Auto) 0.1 TH/MM3 CBC Comment AUTO DIFF Differential Comment AUTO DIFF CONFIRMED Prothrombin Time 10.6 SEC Prothromb Time International 1.0 RATIO Ratio Activated Partial 27.5 SEC Thromboplast Time D-Dimer Quantitative (PE/DVT) 0.39 MG/L FEU Sodium Level 140 MEQ/L Potassium Level 4.4 MEQ/L Chloride Level 105 MEQ/L Carbon Dioxide Level 25.4 MEQ/L Anion Gap 10 MEQ/L Blood Urea Nitrogen 20 MG/DL Creatinine 1.12 MG/DL Estimat Glomerular Filtration 81 ML/MIN Rate Random Glucose 68 MG/DL Calcium Level 9.5 MG/DL Total Bilirubin 0.2 MG/DL Aspartate Amino Transf 28 U/L (AST/SGOT) Alanine Aminotransferase 47 U/L (ALT/SGPT) Alkaline Phosphatase 47 U/L Total Creatine Kinase 345 U/L Creatine Kinase MB 2.7 NG/ML Creatine Kinase MB % 0.8 % Troponin I 0.03 NG/ML B-Type Natriuretic Peptide 15 PG/ML Total Protein 7.4 GM/DL Albumin 3.7 GM/DL MDM Medical Decision Making Medical Screen Exam Complete: Yes Emergency Medical Condition: Yes Interpretation(s) EKG rate 84, sinus rhythm, occasional ABCs. [place] interval 186, QRS 82, QTc 385. Normal axis. No ischemic changes. Similar to previous tracing of 03/21/16. Reviewed by Dr. Hunter Differential Diagnosis Deconditioning versus pneumonia versus PE versus ACS versus musculoskeletal chest pain versus other Narrative Course 60-year-old male with PMH of DM, chronic back pain, recent pneumonia diagnosis presents to the ED for evaluation of dyspnea on exertion, rib pain with deep breathing. He states that he feels as if he is having difficulties moving air. States pain is exactly the same as previously diagnosed musculoskeletal chest pain. He denies fevers, chills, chest pain, palpitations, cough, diaphoresis, nausea, vomiting, abdominal pain, dysuria, back pain. He endorses a recent sedentary period while he was treating for pneumonia. Denies leg pain. He repeatedly states "It's not my heart." Vitals reviewed. Pulse 92, BP 150/70 on presentation. Physical exam reveals a nontoxic-appearing black male in no acute distress. No appreciable M/R/G. Breath sounds clear and equal bilaterally. Abdomen benign. Homans sign negative bilaterally. Equal distal pulses bilaterally. IV was established. Patient was placed on continuous monitoring. CBC: WBC 9.2. Hemoglobin 11.5. INR 1.0. CMP: BUN 20, creatinine 1.12. D-dimer 0.39. BNP 15 Cardiac enzymes negative 1: EKG: As above. CXR: No acute disease UA: No culture indicated I discussed the patient, workup and plan for discharge with who agrees. The patient was reassured when we discussed his negative workup. I suspect this dyspnea on exertion may be related to deconditioning. I encouraged him to continue with normal, gentle activities, albuterol rescue inhaler at home as needed. I recommended that he consult with his primary care provider regarding outpatient pulmonary function testing at the [facility]. The patient indicated understanding of his discharge instructions. He is amenable to the plan of care. He is stable and discharged home. Diagnosis Primary Impression: Musculoskeletal chest pain Additional Impression: Physical deconditioning Referrals: Primary Care Physician Patient Instructions: Dyspnea (ED), General Instructions Additional Instructions: Rest, hydrate. Resume normal, gentle activities as tolerated. Continue albuterol rescue inhaler as needed. Outpatient pulmonary function testing may be of benefit. Follow up with the [facility] this week. Return to the ED for any urgent or emergent medical condition. Disposition: 01 DISCHARGE HOME Condition: Stable Azalea Brown Apr 19, 2016 12:37
[2016-04-19] MEDS ORDERED: SODIUM CHLORIDE 0.9% FLUSH 5 ML FLUSH IVF PRN (13:00)
[2016-04-19 13:03] VITALS: O2SAT 98
[2016-04-19 13:13] LABS: AUTOMATED NEUTROPHIL # 4.3 TH/MM3 (1.8-7.7); BASOPHIL # 0.1 TH/MM3 (0-0.2); BASOPHIL % 0.6 % (0.0-2.0); EOSINOPHIL # 0.6 TH/MM3 (0-0.4); EOSINOPHIL % 6.5 % (0.0-4.0); LYMPH % 36.3 % (9.0-44.0); LYMPHOCYTE # 3.3 TH/MM3 (1.0-4.8); MEAN CELL VOLUME 73.4 FL (80.0-100.0); MEAN CORPUSCULAR HEMOGLOBIN 23.4 PG (27.0-34.0); MEAN CORPUSCULAR HGB CONC 31.9 % (32.0-36.0); MONO % 9.6 % (0.0-8.0); PLATELET COUNT 323 TH/MM3 (150-450); RED BLOOD COUNT 4.91 MIL/MM3 (4.50-5.90); RED CELL DISTRIBUTION WIDTH 14.9 % (11.6-17.2); WHITE BLOOD COUNT 9.2 TH/MM3 (4.0-11.0)
[2016-04-19 13:18] LABS: HEMO FLAGS AUTO DIFF
[2016-04-19 13:20] LABS: BLOOD, URINE NEG (NEG); GLUCOSE,URINE NEG (NEG); KETONE, URINE NEG (NEG); MUCUS URINE FEW /lpf (OCC); NITRITE,URINE NEG (NEG); URINE COLOR YELLOW (YELLW/STRAW)
[2016-04-19 13:23] LABS: APTT (PATIENT) 27.5 SEC (24.3-30.1); PROTHROMBIN TIME - PATIENT 10.6 SEC (9.8-11.6)
[2016-04-19 13:27] LABS: ALT (GPT) 47 U/L (12-78); ANION GAP 10 MEQ/L (5-15); AST (GOT) 28 U/L (15-37); BICARBONATE 25.4 MEQ/L (21.0-32.0); BLOOD UREA NITROGEN 20 MG/DL (7-18); CHLORIDE 105 MEQ/L (98-107); GLOMERULAR FILTRATION RATE 81 ML/MIN (>89); POTASSIUM 4.4 MEQ/L (3.5-5.1); SODIUM (NA) 140 MEQ/L (136-145)
[2016-04-19 13:30] LABS: COMMENT (UR) CULT NOT INDICATED; CULTURE IF INDICATED CULT NOT INDICATED
[2016-04-19 13:31] LABS: ALKALINE PHOSPHATASE 47 U/L (45-117); CREATINE KINASE 345 U/L (39-308); TOTAL BILIRUBIN ADULT 0.2 MG/DL (0.2-1.0)
--- NOTE | 2016-04-19 13:33 | RADRPT ---
EXAM DATE/TIME: 04/19/2016 12:53 [facility] COMPARISON: CHEST SINGLE AP, April 12, 2016, 12:03. INDICATIONS : Coughing, short of breath, recent pneumonia, pain across lower chest MEDICAL HISTORY : pneumonia SURGICAL HISTORY : None. ENCOUNTER: [facility] ACUITY: 1 week PAIN SCORE: 4/10 LOCATION: Bilateral chest FINDINGS: A single view of the chest demonstrates the lungs to be symmetrically aerated without evidence of mas s, infiltrate or effusion. The cardiomediastinal contours are unremarkable. Osseous structures are intact. CONCLUSION: No acute disease. Antony Arnold MD on April 19, 2016 at 13:30 Board Certified Radiologist. This report was verified electronically.
[2016-04-19 13:43] LABS: SCAN/DIFF AUTO DIFF CONFIRMED
[2016-04-19 13:44] LABS: CKMB 2.7 NG/ML (0.5-3.6)
[2016-04-19 15:00] VITALS: BP 150/85; PULSE 98; RESP 20; O2SAT 98
--- NOTE | 2016-04-20 23:08 | EKG ---
Date Performed: 04/19/2016 Time Performed: 12:57:14 PTAGE: 60 years EKG: Sinus rhythm WITH OCCASIONAL SUPRAVENTRICULAR PREMATURE COMPLEXES BORDERLINE ECG PREVIOUS TRACING : 04/13/2016 01.58 DOCTOR: Selene Martinez Interpretating Date/Time 04/20/2016 23:02:43
== END 2016-04-19 15:24 | disposition home or self-care (01) ==
LOC: NEPE 11:12
DX: R07.89 Other chest pain (principal); R07.81 Pleurodynia; R94.31 Abnormal electrocardiogram [ECG] [EKG]; E11.9 Type 2 diabetes mellitus without complications; I10 Essential (primary) hypertension; E78.00 Pure hypercholesterolemia, unspecified; G47.30 Sleep apnea, unspecified; Z79.4 Long term (current) use of insulin; Z87.39 Personal history of other diseases of the musculoskeletal system and connective tissue; Z87.01 Personal history of pneumonia (recurrent); Z87.09 Personal history of other diseases of the respiratory system; Z86.59 Personal history of other mental and behavioral disorders; Z86.79 Personal history of other diseases of the circulatory system; Z87.19 Personal history of other diseases of the digestive system
CPT/HCPCS: 71010; 80053; 81001; 82550; 82552; 83880; 84484; 85025; 85379; 85610; 85730; 93005